=== PATIENT | female | born 1970 | race Caucasian/White ===

== ENCOUNTER 2020-04-11 08:51 | Outpatient (CLI) | payer OTHER, SELFPAY ==
--- NOTE | ~2020-04-11 | XR_ITS ---
EXAMINATION: XR chest 2V EXAM DATE: 04/11/2020 09:16 INDICATION: Cough. TECHNIQUE: Frontal and lateral projections of the chest obtained and reviewed. Comparison is made to prior examination from 08/06/2006. FINDINGS: The lungs are clear. There are no pleural effusions. The cardiomediastinal silhouette is within normal limits. There is no pneumothorax suspected. Mild to moderate lower thoracic dextrosco liosis. There are cholecystectomy clips. IMPRESSION: No acute cardiopulmonary findings. Reviewed, dictated and finalized at location B.
== END 2020-04-11 08:52 | disposition home or self-care (01) ==
LOC: ANHIMG 09:04
PROVIDERS: PCP Family Medicine; Visit Provider Nurse Practitioner Family
DX: R05 Cough (principal)
CPT/HCPCS: 71046

== ENCOUNTER → 2020-11-08 07:50 | Outpatient (CLI) | payer OTHER, SELFPAY ==
--- NOTE | ~2020-11-08 | MM_ITS ---
EXAMINATION: MM diagnostic [facility] BI w trey HISTORY: Right breast soreness. Previous benign left breast biopsy. TECHNIQUE: Additional 3-D tomosynthesis images of the breasts were performed and synthetic 2-D images were generated. CAD analysis was submitted and interpreted. COMPARISON: Comparison to multiple prior studies sequentially, with oldest reviewed study dated 08/2015. BREAST PARENCHYMAL COMPOSITION: Breast composed of scattered areas of fibroglandular density. FINDINGS: There are no suspicious masses, calcifications or architectural distortion in either breast to suggest malignancy. There is a tissue marker associated with a small benign-appearing nodule in t he left breast which is smaller than on prior examinations. IMPRESSION: 1. No evidence for malignancy in either breast. 2. Routine yearly screening mammogram and regular clinical breast examination are recommended. BI-RADS Category 2: Benign finding(s). Reviewed, dictated and finalized at location A. IMPRESSION: 1. No evidence for malignancy in either breast. 2. Routine yearly screening mammogram and regular clinical breast examination a re recommended. BI-RADS Category 2: Benign finding(s).
== END ==
PROVIDERS: PCP Family Medicine; Visit Provider Family Medicine
DX: R92.8 Other abnormal and inconclusive findings on diagnostic imaging of breast (principal)
CPT/HCPCS: 77062; 77066; G0279

== ENCOUNTER → 2021-07-04 01:08 | Outpatient (CLI) | payer OTHER, SELFPAY ==
[2021-07-04 20:43] LABS: SARS-CoV-2 RNA PCR Negative
== END ==
PROVIDERS: PCP Family Medicine; Visit Provider Nurse Practitioner Family
DX: Z20.822 Contact with and (suspected) exposure to COVID-19 (principal)
CPT/HCPCS: C9803; U0003; U0005

== ENCOUNTER → 2021-08-29 15:13 | Outpatient (CLI) | payer OTHER, SELFPAY ==
--- NOTE | ~2021-08-29 | XR_ITS ---
EXAMINATION: XR chest 2V 08/29/2021 15:40 INDICATION: Cough PROCEDURE: 2 view chest COMPARISON: 04/11/2020 FINDINGS: The lungs are clear. The cardiomediastinal silhouette is within normal limits. There are no pleural effusions. There is no pneumothorax suspected. IMPRESSION: 1: NO ACUTE CARDIOPULMONARY DISEASE. Reviewed, dictated and finalized at location B. H WASHER
== END ==
PROVIDERS: PCP Family Medicine; Visit Provider Family Medicine
DX: R05.9 Cough, unspecified (principal)
CPT/HCPCS: 71046

== ENCOUNTER 2022-10-05 07:18 | Outpatient (CLI) | payer OTHER, SELFPAY ==
--- NOTE | ~2022-10-05 | CT_ITS ---
EXAMINATION: CT sinus wo con DATE: 10/05/2022 07:40 INDICATION: Facial pain, chronic sinusitis TECHNIQUE: Computed tomography (CT) of the paranasal sinuses was performed without intravenous contra st. The dose-length product (DLP) was 286.97 mGy-cm. Iterative reconstruction was used. COMPARISON: None FINDINGS: There is normal development and pneumatization of the paranasal sinuses. There is a 5 mm po lyp or mucous retention cyst in the left sphenoid sinus. The frontal, sphenoid, ethmoid, and maxillar y sinuses are otherwise clear. The bilateral ostiomeatal complexes are patent. Visualized soft tissue s are unremarkable. IMPRESSION: 1. Tiny polyp or mucous retention cyst in the left sphenoid sinus. Reviewed, dictated and finalized at location B.
== END 2022-10-05 07:19 | disposition home or self-care (01) ==
PROVIDERS: PCP Family Medicine; Visit Provider Family Medicine
DX: J32.9 Chronic sinusitis, unspecified (principal)
CPT/HCPCS: 70486

== ENCOUNTER 2022-12-04 13:39 | Outpatient (CLI) | payer OTHER, SELFPAY ==
[2022-12-09 05:51] LABS: FSH 98.3 mIU/mL (***); LH 40.1 mIU/mL (***); Progesterone <0.2 ng/mL (***)
[2022-12-10 16:11] LABS: Testosterone Free 1.1 pg/mL (0.1-6.4); Testosterone Total 9 ng/dL (2-45)
[2022-12-13 23:50] LABS: Estradiol, Ultrasensitive 4 pg/mL
== END 2022-12-04 13:40 | disposition home or self-care (01) ==
PROVIDERS: PCP Family Medicine; Visit Provider Registered Nurse
DX: N95.1 Menopausal and female climacteric states (principal); R53.82 Chronic fatigue, unspecified
CPT/HCPCS: 36415; 82670; 83001; 83002; 84144; 84402; 84403; 84443

== ENCOUNTER 2023-01-22 11:36 | Outpatient (CLI) | payer OTHER, SELFPAY ==
--- NOTE | ~2023-01-22 | MM_ITS ---
EXAMINATION: MM screening [facility] BI w trey HISTORY: Screening TECHNIQUE: Craniocaudal and mediolateral oblique 3-D tomosynthesis images were obtained and synthetic 2-D images were generated. CAD analysis was submitted and interpreted. COMPARISON: Comparison to multiple prior studies sequentially, with oldest reviewed study dated 08/2015. BREAST PARENCHYMAL COMPOSITION: There are scattered areas of fibroglandular density. FINDINGS: There is no evidence of suspicious mass, calcification, or architectural distortion to sugg est malignancy in either breast. There has been no suspicious interval change. IMPRESSION: 1. No mammographic evidence of malignancy. 2. Recommend routine screening mammography in one year. BI-RADS Category 1: Negative Reviewed, dictated and finalized at location A.
== END 2023-01-22 11:37 | disposition home or self-care (01) ==
PROVIDERS: PCP Family Medicine; Visit Provider Family Medicine
DX: Z12.31 Encounter for screening mammogram for malignant neoplasm of breast (principal)
CPT/HCPCS: 77063; 77067

== ENCOUNTER 2023-02-17 16:30 | Outpatient (RCR) | payer OTHER, SELFPAY ==
--- NOTE | 2022-12-18 13:33 | PTOPEVAL1 ---
Assessment and note entered by Corrina Brantley, PT Evaluation Information Assessment Status Evaluation Diagnosis low back pain Onset October 31, 2022 Subjective Information chronic problems with back, since surgery on back, with R leg nerve compression and weakness since; was more active with daughter's wedding, then with dancing had a loud pop; problems walking; is better than it was, but still not good; have had therapy in the past and exercises helped get her leg stronger; she likes to walk for exercise ~ 20 minutes; have some neuropathy in her R leg and sometimes R ankle rolls; does not do any back exercises now, but has in the past; Reported Pain Level Pain Score Self Report Additional Pain Score Comments pain the past week-- staying about 1/10, soreness in back & R hip; leg feels weak and going to give out; R leg feels like not moving right when go to take a step when walking; have used ice some pain is less now than initially was; increase pain: overdo activity decrease pain; move some, taking anti inflammatory prescription 2x/day and over the counter meds; pain does not bother her sleeping; sleeps on her side and pillow between her knees; Assessment PT Clinical Summary Denise has the diagnosis of low back and R hip pain. She reports onset with increasing activity level. Her history includes lumbar discectomy with residual R neuropathy. She is active and works part time at [employer], sitting tasks. With the evaluation, she has weakness over trunk and both legs, R weaker than L; L hamstring is tighter than R; she has scoliosis of her spine with poor standing positioning, with R hip elevated and forward rotation; she currently does not do any back exercises. Skilled PT services are indicated for modalities PRN for pain control; therapeutic exercises to increase trunk and hip strength and flexibility; education for home exercises and posture correction. Plan of Care Interventions Electrical Stimulation,Hot Pack/Cold Pack,Manual Therapy,Mechanical Traction,Neuro Re-education, Patient Education,Therapeutic Activities, Therapeutic Exercise,Ultrasound,Other Other Interventions taping,
--- NOTE | 2023-01-22 15:41 | OPREHPOC ---
Outpatient Therapy Plan of Care This is a Multidisciplinary Plan of Care that may contain components documented by all disciplines (PT, OT, and ST.) PT Problem 1 PT Problem #1 Knowledge Deficit PT Goal 1 Goal 1* indep with home exercise program Progress Met Comment 01-22-23 progress continue towards goal PT Problem 2 PT Problem #2 Pain PT Goal 1 Goal 1* pt report NO soreness in her back or R hip Progress Not Met Comment 01-22-23 progress NEW GOALS: 1* pain rating in back of 2/10 at worst 2* no pain in R hip reported PT Problem 3 PT Problem #3 Impaired Flexibility PT Goal 1 Goal 1* supine hamstring length with SLR L 65' 2* supine piriformis stretch on R, reports same stretch as L side Progress Partially Met Comment 01-22-23 progress met goal 1 NEW GOALS: 1* supine piriformis stretch on R report same stretch as L 2* supine hamstrring SLR stretch on R without increase pain PT Problem 4 PT Problem #4 Impaired Strength PT Goal 1 Goal single leg standing with good stability x 20 seconds 1* R 2* L side lying hip abduction to 10' x 20 reps 3* R 4* L prone hip extension x 20 reps 5* R 6* L Progress Partially Met Comment 01-22-23 progress met goals 3,4; partially met #1 & 2 with time, but is not stable continue towards goals
--- NOTE | 2023-01-22 15:42 | PTOPPROG ---
Assessment and note entered by Corrina Brantley, PT Evaluation Information Assessment Status Progress Diagnosis low back pain Onset October 31, 2022 Subjective Information Denise reports: pain has increased with doing yard work and progression of the exercises at the last PT session; having more pain and spasms in back; doing exercises at home; is going to have her friend do accupuncture on her back again; R leg/hip is better, but back is hurting more; Assessment PT Clinical Summary Denise has received 6 PT sessions. Compared to the initial evaluation: pain rating is worse at 2-5/10, was 1/10 all the time; she has recently done more activity with yard work and progression of her therapy activities; she reports less pain in her R hip--only hurts when there is pressure over lateral hip; flexibility of L hamstring has increased with SLR stretch; increase strength with single leg standing R and L and mat exercises; she has been educated on HEP and body mechanics and pain control/management. The goals were partially met. Continue PT treatment to further decrease pain, increase strength and activity level and progression of HEP. Plan of Care Interventions Electrical Stimulation,Hot Pack/Cold Pack,Manual Therapy,Mechanical Traction,Neuro Re-education, Patient Education,Therapeutic Activities, Therapeutic Exercise,Ultrasound,Other Other Interventions taping, IASTM, dry needling PT Services Indicated Yes Treatment Frequency and 2x/wk for 5 weeks Duration These treatments will address the objective and functional deficits as defined above. The patient will be advanced safely and appropriately in order for the patient to progress towards his/her prior level of function. Additional exercises will be introduced and as well as a comprehensive home exercise program upon discharge, if needed, ?to ensure carryover of functional gains achieved in the clinic. This treatment plan has been reviewed and agreement upon by the patient.
--- NOTE | 2023-01-22 15:43 | PCPTNOTE ---
pt will be out of town next week on vacation, January 26 to ;
--- NOTE | 2023-02-17 17:33 | PTOPDC ---
Assessment and note entered by Davie Dutta Evaluation Information Assessment Status Discharge Diagnosis low back pain Onset 10/31/22 Subjective Information Pt. reports that her pain continues to be intense. She reports that after exercise she is noticing increased muscle tension. She reports that she has been taking a muscle relaxor on a nightly basis. She states that she is frustrated that nothing relieves her pain. She reports she is able to sleep at night with use of her muscle relaxor. She notes that she is having to stretch frequently at work due to recently developed spasming. She continues to notice pain in the right leg described in the buttock. Reported Pain Level Pain Score 8: Self Report Assessment PT Clinical Summary Pt. has been advanced through level 1 exercise of the modified lagos prabha trunk stabilizaiton protocol. She continues to provide consistent pain reports that do not fluctuate during treatment. Upon examination this date pt. presents with finding on special testing that would indicate both hip and lumbar pathology. At this time given the pt. consistent pain reports recommend follow up with her doctor and consider possible further imaging of the right hip and lumbar spine. She is encouraged to continue with her HEP. Plan of Care PT Services Indicated Yes
== END 2023-02-18 13:13 | disposition home or self-care (01) ==
LOC: ANHPT 16:30
PROVIDERS: PCP Family Medicine; Visit Provider Family Medicine
DX: M54.50 Low back pain, unspecified (principal); M25.551 Pain in right hip; M51.36 Other intervertebral disc degeneration, lumbar region
CPT/HCPCS: 97014; 97110; 97112; 97161; 97530; G0283

== ENCOUNTER 2023-02-19 00:23 | Day surgery (SDC) | payer OTHER, SELFPAY ==
[2023-02-05 11:34] VITALS: BMI 36.6
[2023-02-19 06:10] VITALS: BP 148/97; PULSE 89; RESP 18; TEMP 35.8; O2SAT 98; BMI 38.0
[2023-02-19] MEDS: LACTATED RINGERS 1,000 ML 150 ML IV CONT (06:41)
--- NOTE | 2023-02-19 07:19 | P.HP_ITS ---
History of Present Illness History of Present Illness Consent: Risks, benefits, and alternatives have been discussed and questions answered. Patient agrees to proceed with procedure. Chief complaint: neoplasm screening Narrative: Julia Brand is a 52 year old female Presents for screening colonoscopy. Patient's current weight appetite and bowel movements are normal. She denies abdominal pain. She has had no bleeding. Family history noncontributory. Patient presents today for screening exam. Review of Systems Review of Systems: Review of systems noncontributory. [facility] Past Medical History Medical History (Updated 02/19/23 @ 07:21 by Tao Mccarthy MD) Abnormal mammogram Allergies BMI 36.0-36.9,adult BMI 37.0-37.9, adult BMI 38.0-38.9,adult BMI greater than 30 Chronic low back pain Constipation Cough COVID-19 Degenerative lumbar disc Low back pain Low vitamin D level Muscle spasms of neck Obesity (BMI 30-39.9) Palpable mass of soft tissue of knee Recurrent sinusitis Right hip pain Right leg pain Surgical History Surgical History (Updated 11/27/22 @ 15:09 by Francesca Hernandez CMA) History of cholecystectomy History of endometrial ablation Previous back surgery Family History Family History (Updated 11/26/22 @ 09:39 by Francesca Hernandez CMA) Father Hypertension Family history of sleep apnea COPD (chronic obstructive pulmonary disease) Colon polyp Obesity Sibling Hypertension Family history of coronary artery disease COPD (chronic obstructive pulmonary disease) Collapsed lung Aneurysm Mother Family history of arthritis Obesity Hypotension Pulmonary embolism History of blood clotting factor deficiency Factor 5 Leiden mutation, heterozygous Social History Social History (Updated 11/27/22 @ 15:10 by Francesca Hernandez CMA) Smoking status: Never smoker Second hand tobacco smoke exposure: No Alcohol intake: current Alcohol use details: couple times a month Substance use: never Substance use type: does not use Lack of Transportation: No Current Housing: I Have Housing Concerned About Future Housing: No Difficulty Paying Gas/Electric Bills: No Difficulty Paying for Meds: No Currently Unemployed: No Education: High School Diploma/GED Difficulty w/ Childcare or Family Care: No Living arrangements: with family Occupation/Education: occupation Gender identity (if verbalized by the patient): Female Spiritual care concerns: No Meds Home Medications and Allergies Home Medications Medication Instructions Recorded Confirmed Type linaclotide 145 mcg capsule 145 mcg PO DAILY #30 caps 11/15/20 02/19/23 Rx (Linzess) phentermine 37.5 mg capsule 37.5 mg PO DAILY #30 caps 10/12/22 02/19/23 Rx olopatadine 0.1 % eye drops See Rx Instructions .Route 10/22/22 02/19/23 Rx .COMPLEX #5 mL cetirizine 10 mg capsule (Zyrtec) 10 mg PO DAILY PRN Allergy Symptoms 11/27/22 02/19/23 History Dream Cream See Rx Instructions .Route 12/24/22 02/19/23 Rx .COMPLEX #30 grams cyclobenzaprine 10 mg tablet 10 mg PO QHS #30 tabs 02/15/23 02/19/23 Rx nabumetone 750 mg tablet 750 mg PO BID #60 tabs 02/17/23 02/19/23 Rx Allergies Allergy/AdvReac Type Severity Reaction Status Date / Time
--- NOTE | 2023-02-19 07:21 | WPDANESEPPF ---
Anes - Initial Pre Proc Eval Procedure: Operation Date: 02/19/23 07:30 Proposed Procedures p Screening Colonoscopy - Tao Mccarthy MD Date/Time: 02/19/23 07:21 Surgeon: Tao Mccarthy MD Pre Op Diagnosis: neoplasm screening Patient Data Age: 52 Gender: F Height: 1.57 m Weight: 94.5 kg Last Vital Signs Temp 96.4 F L 02/19/23 06:10 Pulse 89 02/19/23 06:10 Resp 18 02/19/23 06:10 BP 148/97 H 02/19/23 06:10 Pulse Ox 98 02/19/23 06:10 O2 Del Method Room Air 02/19/23 06:10 Allergies Allergy/AdvReac Type Severity Reaction Status Date / Time atorvastatin Allergy Mild sore throat Verified 02/19/23 06:25 ezetimibe Allergy Mild arthralgia Verified 02/19/23 06:25 Home Medications Medication Instructions Recorded Confirmed Type linaclotide 145 mcg capsule 145 mcg PO DAILY #30 caps 11/15/20 02/19/23 Rx (Linzess) phentermine 37.5 mg capsule 37.5 mg PO DAILY #30 caps 10/12/22 02/19/23 Rx olopatadine 0.1 % eye drops See Rx Instructions .Route 10/22/22 02/19/23 Rx .COMPLEX #5 mL cetirizine 10 mg capsule (Zyrtec) 10 mg PO DAILY PRN Allergy Symptoms 11/27/22 02/19/23 History Dream Cream See Rx Instructions .Route 12/24/22 02/19/23 Rx .COMPLEX #30 grams cyclobenzaprine 10 mg tablet 10 mg PO QHS #30 tabs 02/15/23 02/19/23 Rx nabumetone 750 mg tablet 750 mg PO BID #60 tabs 02/17/23 02/19/23 Rx Patient hx anesthesia problems: none Family hx anesthesia problems: none Results Review: All pre-operative results and documents have been reviewed as part of the pre-operative evaluation. [facility] Past Medical History Medical History (Updated 02/19/23 @ 07:21 by Tao Mccarthy MD) Abnormal mammogram Allergies BMI 36.0-36.9,adult BMI 37.0-37.9, adult BMI 38.0-38.9,adult BMI greater than 30 Chronic low back pain Constipation Cough COVID-19 Degenerative lumbar disc Low back pain Low vitamin D level Muscle spasms of neck Obesity (BMI 30-39.9) Palpable mass of soft tissue of knee Recurrent sinusitis Right hip pain Right leg pain Surgical History Surgical History (Updated 11/27/22 @ 15:09 by Francesca Hernandez CMA) History of cholecystectomy History of endometrial ablation Previous back surgery Family History Family History (Updated 11/26/22 @ 09:39 by Francesca Hernandez CMA) Father Hypertension Family history of sleep apnea COPD (chronic obstructive pulmonary disease) Colon polyp Obesity Sibling Hypertension Family history of coronary artery disease COPD (chronic obstructive pulmonary disease) Collapsed lung Aneurysm Mother Family history of arthritis Obesity Hypotension Pulmonary embolism History of blood clotting factor deficiency Factor 5 Leiden mutation, heterozygous Social History Social History (Updated 11/27/22 @ 15:10 by Francesca Hernandez CMA) Smoking status: Never smoker Second hand tobacco smoke exposure: No Alcohol intake: current Alcohol use details: couple times a month Substance use: never Substance use type: does not use Lack of Transportation: No Current Housing: I Have Housing Concerned About Future Housing: No Difficulty Paying Gas/Electric Bills: No Difficulty Paying for Meds: No Currently Unemployed: No Education: High School Diploma/GED Difficulty w/ Childcare or Family Care: No Living arrangements: with family Occupation/Education: occupation Gender identity (if verbalized by the patient): Female Spiritual care concerns: No Anes - Eval Final PreProcedure Day of Procedure 02/19/23 07:21 Patient weight: obese Heart: regular rate and rhythm Lungs: clear to auscultation Airway: Mallampati scale class II Neurological: alert and oriented Last oral intake: >/= 8 hours ASA classification: II Emergent: no Anesthetic plan: proceed Anesthesia type and monitoring: general GIVS and standard monitoring Results Review: All pre-operative results and documents have been reviewed
[2023-02-19 07:49] VITALS: BP 137/83; PULSE 76; RESP 19; O2SAT 100
[2023-02-19 07:59] VITALS: BP 158/97; PULSE 79; RESP 23; O2SAT 100
[2023-02-19 08:09] VITALS: BP 153/92; PULSE 85; RESP 21; O2SAT 100
== END 2023-02-19 08:15 | disposition home or self-care (01) ==
PROVIDERS: PCP Family Medicine; Visit Provider Internal Medicine Gastroenterology
PROC: 0DJD8ZZ Inspection of Lower Intestinal Tract, Via Natural or Artificial Opening Endoscopic (ICD-10-PCS; CPT 45378; principal; 2023-02-19 07:30)
DX: Z12.11 Encounter for screening for malignant neoplasm of colon (principal); K64.8 Other hemorrhoids; K59.00 Constipation, unspecified; G89.29 Other chronic pain; M54.50 Low back pain, unspecified; E66.9 Obesity, unspecified; Z68.38 Body mass index [BMI] 38.0-38.9, adult
CPT/HCPCS: 45378; J2704; J7120

== ENCOUNTER 2023-03-02 06:47 | Outpatient (CLI) | payer OTHER, SELFPAY ==
--- NOTE | ~2023-03-02 | XR_ITS ---
AP view of the pelvis and AP and lateral views of the right hip Clinical history: Pain Findings: No acute fracture or dislocation is seen. Osseous alignment is anatomic. Bilateral hip and SI joint spaces are preserved. Soft tissues are unremarkable. Impression: No significant abnormality is seen. Reviewed, dictated and finalized at [facility]. Impression: No significant abnormality is seen.
== END 2023-03-02 06:48 | disposition home or self-care (01) ==
PROVIDERS: PCP Family Medicine; Visit Provider Physician Assistant Medical
DX: M25.551 Pain in right hip (principal); G89.29 Other chronic pain
CPT/HCPCS: 73502

== ENCOUNTER 2023-03-24 06:40 | Outpatient (CLI) | payer OTHER, SELFPAY ==
[2023-03-24 07:25] LABS: Basophils Percent Auto 0.5 % (0.2-1.2); Eosinophils Absolute Auto 0.2 K/mm3 (0-0.3); Eosinophils Percent Auto 4.2 % (0-4.4); Hematocrit 39.4 % (37.0-47.0); Hemoglobin 12.8 g/dL (12.0-15.0); Immature Granulocyte Absolute 0.02 K/mm3 (0.00-0.031); Immature Granulocyte Percent A 0.4 % (0-0.5); Lymphocytes Absolute Auto 2.07 K/mm3 (0.9-3.2); Lymphocytes Percent Auto 36.6 % (18.3-44.2); Mean Corpuscular HGB Conc 32.5 g/dl (32-36); Mean Corpuscular Hemoglobin 29.1 pg (26-34); Mean Corpuscular Volume 89.5 fl (80-100); Mean Platelet Volume 9.5 fl (7.4-10.4); Monocytes Absolute Auto 0.5 K/mm3 (0.1-0.6); Neutrophils Absolute Auto 2.8 K/mm3 (1.3-6.7); Neutrophils Percent Auto 50.3 % (45.5-73.1); Platelet Count Result 282 k/mm3 (150-375); Red Cell Distribution Width 13.9 % (11.5-14.5); White Blood Count 5.7 K/mm3 (4.5-10.0)
[2023-03-24 07:54] LABS: Alanine Aminotransferase 26 U/L (6-35); Albumin Level 4.3 g/dL (3.5-5.1); Alkaline Phosphatase 63 U/L (38-126); Anion Gap 7 mmol/L (8-16); Aspartate Amino Transferase 27 U/L (14-36); Bilirubin,Total 0.6 mg/dL (0.2-1.3); Blood Urea Nitrogen 27 mg/dL (7-17); Calcium 9.2 mg/dL (8.4-10.2); Carbon Dioxide 27 mmol/L (22-30); Chloride 102 mmol/L (98-107); Estimated Glomerular Filt Rate > 60; Glucose 99 mg/dL (65-110); HDL Direct 78 mg/dL; Potassium 3.9 mmol/L (3.4-5.0); Sodium 136 mmol/L (137-145); Triglycerides 101 mg/dL (<150)
[2023-03-24 07:57] LABS: LDL Cholesterol Direct 188 mg/dL
[2023-03-24 16:33] LABS: Vitamin D 25 Hydroxy 61.8 ng/mL
[2023-03-25 03:54] LABS: Cholesterol 344 mg/dL (0-200)
== END 2023-03-24 06:41 | disposition home or self-care (01) ==
PROVIDERS: PCP Family Medicine; Visit Provider Physician Assistant Medical
DX: E78.5 Hyperlipidemia, unspecified (principal); R79.89 Other specified abnormal findings of blood chemistry; R53.82 Chronic fatigue, unspecified; N95.1 Menopausal and female climacteric states; R68.82 Decreased libido; E55.9 Vitamin D deficiency, unspecified
CPT/HCPCS: 36415; 80053; 80061; 82306; 85025

== ENCOUNTER 2023-03-26 12:22 | Outpatient (CLI) | payer OTHER, SELFPAY ==
--- NOTE | ~2023-03-26 | MR_ITS ---
EXAMINATION: MR lumbar spine wo con DATE: 03/26/2023 13:34 INDICATION: Other intervertebral disc degeneration, lumbar spine. Chronic low back pain. Lumbar radic ulopathy. TECHNIQUE: Magnetic resonance imaging (MRI) of the lumbar spine was performed without intravenous con trast. COMPARISON: Lumbar spine MRI 02/09/2018 FINDINGS: There is 22 degrees levoscoliosis of thoracolumbar spine. There is 3 mm retrolisthesis of L 1 on L2, L2 on L3, L3 on L4, L4 on L5, and L5 on S1. There is mild chronic anterior wedging of T11 ve rtebral body. There is mildly decreased disc height at T11-T12, moderately decreased disc height at T 12-L1 and L1-L2, mildly decreased disc height at L2-L3, L3-L4, and L4-L5, and severely decreased disc height at L5-S1 with endplate remodeling. The distal spinal cord signal intensity is normal. The con us medullaris is at T12. The following disc levels are specifically discussed: L1-L2: The disc is bulging and has an annular fissure. There is moderate bilateral facet joint osteoa rthritis. There is mild left neural foraminal stenosis. There is mild central canal stenosis. L2-L3: The disc is bulging. There is moderate bilateral facet joint osteoarthritis. There is mild alysia ateral neural foraminal stenosis. There is mild central canal stenosis. L3-L4: The disc is bulging and has an annular fissure. There is moderate right and mild left facet robbie int osteoarthritis. There is mild right and moderate left neural foraminal stenosis. There is mild ce ntral canal stenosis. There is moderate stenosis of left lateral recess. L4-L5: The disc is bulging and has an annular fissure. There is moderate bilateral facet joint osteoa rthritis. There is mild right and moderate left neural foraminal stenosis. There is mild central markus l stenosis. L5-S1: The disc is bulging. There is severe bilateral facet joint osteoarthritis. There is moderate b ilateral neural foraminal stenosis. There is mild central canal stenosis. IMPRESSION: 1. Severe lumbar spondylosis, stable from 02/09/2018. 2. Thoracolumbar levoscoliosis. Reviewed, dictated and finalized at location A.
--- NOTE | ~2023-03-26 | MR_ITS ---
EXAMINATION: MR hip RT wo con DATE: 03/26/2023 13:34 INDICATION: Right hip pain. TECHNIQUE: Magnetic resonance imaging (MRI) of the right hip was performed without intravenous contra st. COMPARISON: Right hip radiographs 03/02/2023 FINDINGS: Bones/cartilage: There is lumbar levoscoliosis and severe lower lumbar spondylosis. The femoral head/neck junctions ar e normal. The hip joints demonstrate tiny osteophytes. Small [id number] images of right hip demons trate normal cartilage. Labrum: Right acetabular labrum is normal. Fluid: There is no hip joint effusion. There is moderate bilateral trochanteric bursitis. Soft tissues: The iliopsoas tendons and hamstring tendon origins are normal. There is a partial tear of right glute us minimus tendon. There is mild right gluteus medius tendinopathy. There is severe left gluteus mini mus tendinopathy. Left gluteus medius tendon is normal. IMPRESSION: 1. Partial tear of right gluteus minimus tendon. 2. Severe tendinopathy of left gluteus minimus tendon. 3. Moderate bilateral trochanteric bursitis. Reviewed, dictated and finalized at location A.
== END 2023-03-26 12:23 | disposition home or self-care (01) ==
LOC: ANHIMG 12:26
PROVIDERS: PCP Family Medicine; Visit Provider Physician Assistant Medical
DX: M51.36 Other intervertebral disc degeneration, lumbar region (principal); M54.41 Lumbago with sciatica, right side; M70.61 Trochanteric bursitis, right hip; M70.62 Trochanteric bursitis, left hip; M47.896 Other spondylosis, lumbar region
CPT/HCPCS: 72148; 73721

== ENCOUNTER 2023-12-14 11:09 | Outpatient (CLI) | payer OTHER, SELFPAY ==
--- NOTE | ~2023-12-14 | MMUS_ITS ---
EXAMINATION: MM diagnostic [facility] BI w trey, US breast RT limited HISTORY: Right breast pain TECHNIQUE: Additional 3-D tomosynthesis images of the breasts were performed and synthetic 2-D images were generated. CAD analysis was submitted and interpreted. High resolution Limited right breast ult rasound was performed. COMPARISON: Comparison to multiple prior studies sequentially, with oldest reviewed study dated 01/2021. BREAST PARENCHYMAL COMPOSITION: Not dense: There are scattered areas of fibroglandular density. FINDINGS: MAMMOGRAPHIC FINDINGS: There are no suspicious masses, calcifications or architectural distortion in either breast to sugges t malignancy. ULTRASOUND: Limited right breast ultrasound: Normal heterogeneous echotexture without focal solid or cystic mass. IMPRESSION: 1. No evidence for malignancy in either breast. 2. Routine yearly screening mammogram and regular clinical breast examination are recommended. BI-RADS Category 1: Negative Reviewed, dictated and finalized at location B. IMPRESSION: 1. No evidence for malignancy in either breast. 2. Routine yearly screening mammogram and regular clinical breast examination a re recommended. BI-RADS Category 1: Negative
== END 2023-12-14 11:10 | disposition home or self-care (01) ==
PROVIDERS: PCP Family Medicine; Visit Provider Nurse Practitioner Family
DX: N64.4 Mastodynia (principal); R92.8 Other abnormal and inconclusive findings on diagnostic imaging of breast
CPT/HCPCS: 76642; 77062; 77066; G0279

== ENCOUNTER 2024-02-16 07:04 | Outpatient (CLI) | payer OTHER, SELFPAY ==
[2024-02-16 07:34] LABS: Basophils Percent Auto 0.4 % (0.2-1.2); Eosinophils Absolute Auto 0.2 K/mm3 (0-0.3); Eosinophils Percent Auto 3.5 % (0-4.4); Hematocrit 41.2 % (37.0-47.0); Hemoglobin 13.4 g/dL (12.0-15.0); Immature Granulocyte Absolute 0.01 K/mm3 (0.00-0.031); Immature Granulocyte Percent A 0.2 % (0-0.5); Lymphocytes Absolute Auto 1.56 K/mm3 (0.9-3.2); Mean Corpuscular HGB Conc 32.5 g/dl (32-36); Mean Corpuscular Hemoglobin 29.1 pg (26-34); Mean Corpuscular Volume 89.4 fl (80-100); Monocytes Absolute Auto 0.4 K/mm3 (0.1-0.6); Monocytes Percent Auto 7.9 % (2.6-8.5); Platelet Count Result 263 k/mm3 (150-375); Red Blood Count 4.61 M/mm3 (4.2-5.4); Red Cell Distribution Width 14.1 % (11.5-14.5); White Blood Count 5.2 K/mm3 (4.5-10.0)
[2024-02-16 07:46] LABS: Alanine Aminotransferase 68 U/L (6-35); Albumin Level 4.3 g/dL (3.5-5.1); Alkaline Phosphatase 72 U/L (38-126); Anion Gap 6 mmol/L (4-12); Aspartate Amino Transferase 54 U/L (14-36); Bilirubin,Total 0.6 mg/dL (0.2-1.3); Blood Urea Nitrogen 15 mg/dL (7-17); Calcium 9.3 mg/dL (8.4-10.2); Carbon Dioxide 33 mmol/L (22-30); Chloride 100 mmol/L (98-107); Cholesterol 299 mg/dL (0-200); Estimated Glomerular Filt Rate > 60; Glucose 95 mg/dL (65-110); HDL Direct 69 mg/dL; Sodium 139 mmol/L (137-145); Triglycerides 108 mg/dL (<150)
[2024-02-16 07:57] LABS: LDL Cholesterol Direct 170 mg/dL
[2024-02-16 10:30] LABS: Vitamin D 25 Hydroxy 30.5 ng/mL
== END 2024-02-16 07:05 | disposition home or self-care (01) ==
LOC: ANHLAB 07:05
PROVIDERS: PCP Family Medicine; Visit Provider Family Medicine
DX: E78.5 Hyperlipidemia, unspecified (principal); E55.9 Vitamin D deficiency, unspecified; R79.89 Other specified abnormal findings of blood chemistry; K21.00 Gastro-esophageal reflux disease with esophagitis, without bleeding; R53.82 Chronic fatigue, unspecified; Z13.220 Encounter for screening for lipoid disorders
CPT/HCPCS: 36415; 80053; 80061; 82248; 82306; 82607; 84443; 85025

== ENCOUNTER 2024-02-18 06:57 | Outpatient (CLI) | payer OTHER, SELFPAY ==
[2024-02-18 07:38] LABS: Alanine Aminotransferase 50 U/L (6-35); Albumin Level 4.3 g/dL (3.5-5.1); Alkaline Phosphatase 69 U/L (38-126); Aspartate Amino Transferase 38 U/L (14-36); Bilirubin,Total 0.6 mg/dL (0.2-1.3)
[2024-02-18 08:47] LABS: Hepatitis B Surface Antigen Negative (Negative)
[2024-02-18 08:53] LABS: HAV RESULT Negative (Negative); Hepatitis B Core IgM Result Negative (Negative)
[2024-02-18 09:02] LABS: Hepatitis C Virus Antibody Negative (Negative)
== END 2024-02-18 06:58 | disposition home or self-care (01) ==
PROVIDERS: PCP Family Medicine; Visit Provider Family Medicine
DX: R74.8 Abnormal levels of other serum enzymes (principal)
CPT/HCPCS: 36415; 80074; 80076

== ENCOUNTER 2024-05-31 11:38 | Outpatient (CLI) | payer OTHER, SELFPAY ==
[2024-05-31 11:56] LABS: Hematocrit 41.3 % (37.0-47.0); Hemoglobin 13.1 g/dL (12.0-15.0); Mean Corpuscular HGB Conc 31.7 g/dl (32-36); Mean Corpuscular Hemoglobin 27.8 pg (26-34); Mean Corpuscular Volume 87.5 fl (80-100); Mean Platelet Volume 9.1 fl (7.4-10.4); Platelet Count Result 293 k/mm3 (150-375); Red Blood Count 4.72 M/mm3 (4.2-5.4); Red Cell Distribution Width 14.7 % (11.5-14.5); White Blood Count 7.3 K/mm3 (4.5-10.0)
[2024-05-31 12:13] LABS: Iron 71 ug/dL (37-170)
[2024-05-31 12:22] LABS: Percent Iron Saturation 18 % (20-50)
== END 2024-05-31 11:39 | disposition home or self-care (01) ==
PROVIDERS: PCP Family Medicine; Visit Provider Nurse Practitioner Family
DX: R23.3 Spontaneous ecchymoses (principal)
CPT/HCPCS: 36415; 82607; 82746; 83540; 83550; 85027

== ENCOUNTER 2024-08-04 11:41 | Outpatient (CLI) | payer OTHER, SELFPAY ==
--- NOTE | ~2024-08-04 | XR_ITS ---
XR knee RT 3V 08/04/2024 12:09 Indication: Right lateral knee pain after twisting injury Procedure: 3 views right knee Comparison: No prior studies for comparison. Findings: There is mild tricompartment osteoarthritis. Small joint effusion. No fracture or traumatic malalignment. No foreign bodies. Impression: 1: Mild tricompartment osteoarthritis. Reviewed, dictated and finalized at location A. MED PHYSICIAN Impression: 1: Mild tricompartment osteoarthritis.
--- OUTSIDE RECORDS SUMMARY | 2024-08-04 11:45 | XMS_ITS | Patient Health Summary ---
Author Organization [facility] [employer] Address [address] [place] [address] Care Team Providers Care Tailings Dam Laborer Name Role Phone Javad Sher MD Primary Care Provider [phone] Note from [facility],non-owned Affiliates and Associated Physician Practices is amultiple site organization consisting of ambulatory clinics and hospital sitesin [place], [place], [place] and [place]. This disclosure is being madepursuant to the Care Everywhere program and may not contain all information available regarding this patient. Last updated 18.[facility] [employer] Allergies No known active allergies Medications * Be aware that medications may not be up to date on this document. Alwaysverify current medications with the patient. * SAXENDA 18 MG/3ML(Started 01/29/2018) 5 refills left * nabumetone (RELAFEN) 750 MG tablet(Started 02/14/2018) TK 1 T PO BID DAILY * tiZANidine (ZANAFLEX) 4 MG tablet(Started 01/27/2018) TK 1 T PO Q 12 H PRN * azelastine (ASTEPRO) 205.5 MCG/SPRAY nasal spray(Started 11/13/2017) INSTILL 1 SPRAY IEN BID 2 refills left * fluticasone propionate (FLONASE ALLERGY RELIEF) 50 MCG/ACT nasal spray [place] 2 sprays into each nostril once daily Active Problems No known active problems Social History Tobacco Use Types Packs/Day Years Used Date Smoking Tobacco: Never Smokeless Tobacco: Never Tobacco Cessation:Counseling Given: No Alcohol Use Standard Drinks/Week Comments No 0 (1 standard drink = 0.6 oz pur e alcohol) Sex and Gender Information Value Date Recorded Sex Assigned at Not on file Gender Identity Not on file Sexual Orientation Not on file Last Filed Vital Signs Vital Sign Reading Time Taken Comments Blood Pressure 135/82 05/13/2018 9:07 AM SHEEPSKIN PICKLER Pulse 91 05/13/2018 9:07 AM SHEEPSKIN PICKLER Temperature 36.5 ??C (97.7 ??F) 05/13/2018 9:07 AM CS T Respiratory Rate 16 05/13/2018 9:07 AM SHEEPSKIN PICKLER Oxygen Saturation 99% 05/13/2018 9:07 AM SHEEPSKIN PICKLER Inhaled Oxygen Concentration - - Weight 89.4 kg (197 lb) 05/13/2018 9:07 AM SHEEPSKIN PICKLER Height 160 cm (5' 3 ) 05/13/2018 9:07 AM SHEEPSKIN PICKLER Body Mass Index 34.9 05/13/2018 9:07 AM SHEEPSKIN PICKLER Procedures * PAIN MANAGEMENT PROCEDURE TIME(Performed 05/13/2018) Performed for Other spondylosis, lumbosacral region * PAIN MANAGEMENT PROCEDURE TIME(Performed 04/22/2018) Performed for Post laminectomy syndrome * PAIN MANAGEMENT PROCEDURE TIME(Performed 04/08/2018) Performed for Lumbosacral spondylosis with radiculopathy * PAIN MANAGEMENT PROCEDURE TIME(Performed 03/11/2018) Performed for Lumbosacral spondylosis with radiculopathy Results * PAIN MANAGEMENT PROCEDURE TIME (05/13/2018 9:56 AM SHEEPSKIN PICKLER) Only the most recent of4 resultswithin the time period is included. Anatomical Region Laterality Modality X-Ray Angiograph y Narrative 05/13/2018 9:56 AM SHEEPSKIN PICKLER Davie Tellez MD ? 05/13/2018 ??9:56 AM The patient was identified in the holding area and the operative permit was explained and signed. I have discussed with the patient the risks, benefits, side effects and complications of fluoroscopically guided lumbar facet steroid injections. I have answered the patient's questions regarding the procedure and have given the patient the opportunity to refuse the procedure. I also have discussed alternative methods of treatment. The patient stated understanding of the procedure and wished to proceed with fluoroscopically guided lumbar facet steroid injections. The patient was taken to the fluoroscopic suite and placed on a C-arm table in the prone position with the appropriate monitors placed. A nurse was in attendance for the duration of the procedure to carefully monitor the patient. Please refer to the nursing record for vital sign documentation and for any doses of sedatives and medications. I was present and gave the order for any medications given to the patient. The procedure was performed on the bilateral L5-S1 facet joints. The lumbosacral region of the back was prepped and draped in the usual sterile fashion. Using fluoroscopic guidance, a 25 gauge 3.5 inch Quincke needle was placed in each facet joint. AP, lateral and oblique views were used to confirm needle placement in each joint. There was negative aspiration of blood and cerebrospinal fluid. 0.3 cc of Omnipaque (240 mg/cc) was injected and filling of each facet joint was confirmed. There were no signs of intravascular, intrathecal or epidural injection. A preservative free mixture of 0.25 cc of 0.25% Bupivacaine and 40 mg of depomedrol was injected into each facet joint. The needles were all removed intact. The procedure was then repeated in an identical fashion on the contralateral side. The patient tolerated the procedure well and there were no complications. The patient was taken to the recovery area. The patient remained in stable condition with no apparent complications. Postprocedure instructions were given to the patient and a follow up appointment was confirmed. The patient was also discharged with information on how to reach the clinic or content manager physician at anytime for questions or complaints Estimated blood loss during procedure 0 ml. ?? Davie SOLANO G ORDERABLES Care Teams Tailings Dam Laborer Relationship Specialty Start Date End Date Javad Sher MD [address] [place] [address] PCP - General Family Medicine 02/21/18
--- OUTSIDE RECORDS SUMMARY | 2024-08-04 11:45 | XMS_ITS | Clinical Summary ---
Author Organization [facility] [employer] Address [address] [place] [address] Care Team Providers Care Geodetic Computator Name Role Phone Javad Sher MD Primary Care Provider [phone] Source Comments [facility] [employer],[facility] and Associated Physician Practices is amultiple site organization consisting of ambulatory clinics and hospital sitesin [place], [place], [place] and [place]. This disclosure is being madepursuant to the Care Everywhere program and may not contain all information available regarding this patient. Last updated 18.[employer] Allergies No known active allergies Medications * Be aware that medications may not be up to date on this document. Alwaysverify current medications with the patient. Medication Sig Dispensed Refills Start Date End Date Status SAXENDA 18 MG/3ML 5 01/29/2018 Active nabumetone (RELAFEN) 750 MG tablet TK 1 T PO BID DAILY 0 02/14/2018 Active tiZANidine (ZANAFLEX) 4 MG tablet TK 1 T PO Q 12 H PRN 0 01/27/2018 Active azelastine (ASTEPRO) 205.5 MCG/SPRAY nasal spray INSTILL 1 SPRAY IEN BID 2 11/13/2017 Active fluticasone propionate (FLONASE ALLERGY RELIEF) 50 MCG/ACT nasal spray [place] 2 sprays into each nostril once daily Active Active Problems No known active problems Family History Medical History Relation Name Comments COPD - Chronic Obstructive Pulmonary Disease Father Diabetes - Gestational Father Diabetes - Type 2 Father Hypertension Father Sleep Disorder - Other Father Hypertension Mother Other - Pulmonary/Lung Mother Phlebitis/Blood Clot Mother Sleep Disorder - Other Mother Relation Name Status Comments Father Alive Mother Alive Social History Tobacco Use Types Packs/Day Years [...] Comments Blood Pressure 135/82 05/13/2018 9:07 AM COMBINER OPERATOR Pulse 91 05/13/2018 9:07 AM COMBINER OPERATOR Temperature 36.5 ??C (97.7 ??F) 05/13/2018 9:07 AM CS T Respiratory Rate 16 05/13/2018 9:07 AM COMBINER OPERATOR Oxygen Saturation 99% 05/13/2018 9:07 AM COMBINER OPERATOR Inhaled Oxygen Concentration - - Weight 89.4 kg (197 lb) 05/13/2018 9:07 AM COMBINER OPERATOR Height 160 cm (5' 3 ) 05/13/2018 9:07 AM COMBINER OPERATOR Body Mass Index 34.9 05/13/2018 9:07 AM COMBINER OPERATOR Plan of Treatment Health Maintenance Due Date Last Done Comments COLOGUARD (AGES 45-75) - COL ON CA SCREENING 1972 COLON MONITORING 1972 COLONOSCOPY - COLON CA SCREENING 1972 CT COLONOGRAPHY - COLON CA SCREENING 1972 Colorectal Cancer Screening 1972 FIT - COLON CA SCREENING 1972 FLEX SIG - COLON CA SCREENING 1972 LIPID TESTING 1972 MAMMOGRAM 1972 PAP SMEAR 1972 HIV SCREENING 09/21/1987 HEPATITIS C SCREENING 09/16/1990 DTAP/TDAP/TD VACCINES (1 - Tdap) 09/21/1991 HEPATITIS B VACCINE (1 of 3 - 19+ 3-dose series) 09/21/1991 SCREENING FOR DIABETES 02/21/2018 PNEUMOCOCCAL VACCINE 50+ (1 of 1 - PCV) 2022 ZOSTER VACCINE (1 of 2) 2022 COVID-19 VACCINE ( - 2023-2 5 season) 2024 INFLUENZA VACCINE (#1) 2024 DEPRESSION SCREENING 07/05/2024 HIB VACCINE Aged Out No longer eligi ble based on patient's age to complete this topic HPV VACCINE Aged Out No longer eligi ble based on patient's age to complete this topic MENINGOCOCCAL (Group B) VACCINE Aged Out No longer eligible based on patient's age to complete this topic MENINGOCOCCAL VACCINE Aged Out No atif ashish eligible based on patient's age to complete this topic PNEUMOCOCCAL VACCINE Aged Out No long er eligible based on patient's age to complete this topic Care Teams Geodetic Computator Relationship Specialty Start Date End Date Javad Sher MD [address] [place] [address] PCP - General Family Medicine 02/21/18
--- OUTSIDE RECORDS SUMMARY | 2024-08-04 11:45 | XMS_ITS | Referral Summary ---
Author Organization [facility] [employer] Address [address] [place] [address] Care Team Providers Care Auto Parker Name Role Phone Javad Sher MD Primary Care Provider [phone] [facility] and Associated Physician Practices is amultiple site organization consisting of ambulatory clinics and hospital sitesin [place], [place], [place] and [place]. This disclosure is being madepursuant to the Care Everywhere program and may not contain all information available regarding this patient. Last updated 18.[facility] [employer] Allergies No known active allergies Medications * [...] (FLONASE ALLERGY RELIEF) 50 MCG/ACT nasal spray [place] 2 sprays into each nostril once daily Active Active Problems No known active problems Social [...] Comments Blood Pressure 135/82 05/13/2018 9:07 AM TACKING MACHINE OPERATOR Pulse 91 05/13/2018 9:07 AM TACKING MACHINE OPERATOR Temperature 36.5 ??C (97.7 ??F) 05/13/2018 9:07 AM CS T Respiratory Rate 16 05/13/2018 9:07 AM TACKING MACHINE OPERATOR Oxygen Saturation 99% 05/13/2018 9:07 AM TACKING MACHINE OPERATOR Inhaled Oxygen Concentration - - Weight 89.4 kg (197 lb) 05/13/2018 9:07 AM TACKING MACHINE OPERATOR Height 160 cm (5' 3 ) 05/13/2018 9:07 AM TACKING MACHINE OPERATOR Body Mass Index 34.9 05/13/2018 9:07 AM TACKING MACHINE OPERATOR Plan of Treatment Not on file Care Teams Auto Parker Relationship Specialty Start Date End Date Javad Sher MD [address] [place] [address] PCP - General Family Medicine 02/21/18
== END 2024-08-04 11:42 | disposition home or self-care (01) ==
LOC: ANHIMG 11:43
PROVIDERS: PCP Family Medicine
DX: M17.11 Unilateral primary osteoarthritis, right knee (principal)
CPT/HCPCS: 73562

== ENCOUNTER 2024-08-18 09:57 | Outpatient (CLI) | payer OTHER, SELFPAY ==
--- NOTE | ~2024-08-18 | XR_ITS ---
EXAMINATION: XR chest 2V 08/18/2024 10:20 INDICATION: Chronic cough PROCEDURE: 2 view chest COMPARISON: Comparison to multiple prior studies sequentially, with oldest reviewed study dated 08/2006. FINDINGS: The lungs are clear. The cardiomediastinal silhouette is within normal limits. There are no pleural effusions. There is no pneumothorax suspected. IMPRESSION: 1: NO ACUTE CARDIOPULMONARY DISEASE. Reviewed, dictated and finalized at location B. D SURFACE FABRICATOR
--- OUTSIDE RECORDS SUMMARY | 2024-08-18 10:10 | XMS_ITS | Patient Health Summary ---
Author Organization [facility] [employer] Address [address] [place] [address] Care Team Providers Care Bessemer Bottom Maker Name Role Phone Javad Sher MD Primary Care Provider [phone] Note from [facility],non-owned Affiliates and Associated Physician Practices is amultiple site organization consisting of ambulatory clinics and hospital sitesin [place], [place], [place] and [place]. This disclosure is being madepursuant to the Care Everywhere program and may not contain all information available regarding this patient. Last updated 18.[facility] [employer] Allergies No known active allergies Medications * [...] (FLONASE ALLERGY RELIEF) 50 MCG/ACT nasal spray [place] 2 sprays into each nostril once daily [...] Comments Blood Pressure 135/82 05/13/2018 9:07 AM LINING STAMPER Pulse 91 05/13/2018 9:07 AM LINING STAMPER Temperature 36.5 C (97.7 F) 05/13/2018 9:07 AM LINING STAMPER Respiratory Rate 16 05/13/2018 9:07 AM LINING STAMPER Oxygen Saturation 99% 05/13/2018 9:07 AM LINING STAMPER Inhaled Oxygen Concentration - - Weight 89.4 kg (197 lb) 05/13/2018 9:07 AM LINING STAMPER Height 160 cm (5' 3 ) 05/13/2018 9:07 AM LINING STAMPER Body Mass Index 34.9 05/13/2018 9:07 AM LINING STAMPER Procedures * PAIN MANAGEMENT PROCEDURE TIME(Performed 05/13/2018) Performed for Other spondylosis, lumbosacral region * PAIN MANAGEMENT PROCEDURE TIME(Performed 04/22/2018) Performed for Post laminectomy syndrome * PAIN MANAGEMENT PROCEDURE TIME(Performed 04/08/2018) Performed for Lumbosacral spondylosis with radiculopathy * PAIN MANAGEMENT PROCEDURE TIME(Performed 03/11/2018) Performed for Lumbosacral spondylosis with radiculopathy Results * PAIN MANAGEMENT PROCEDURE TIME (05/13/2018 9:56 AM LINING STAMPER) Only the most recent of4 resultswithin the time period is included. Anatomical Region Laterality Modality X-Ray Angiograph y Narrative 05/13/2018 9:56 AM LINING STAMPER Davie Tellez MD 05/13/2018 9:56 AM The patient was identified in the [...] on how to reach the clinic or cloud solutions architect physician at anytime for questions or complaints Estimated blood loss during procedure 0 ml. Davie Tellez MD DIAGNOSTIC XIOMARA Mcdermott ORDERABLES Care Teams Bessemer Bottom Maker Relationship Specialty Start Date End Date Javad Sher MD [address] [place] [address] PCP - General Family Medicine 02/21/18
--- OUTSIDE RECORDS SUMMARY | 2024-08-18 10:10 | XMS_ITS | Clinical Summary ---
Author Organization [facility] [employer] Address [address] [place] [address] Care Team Providers Care Builder Operator Name Role Phone Javad Sher MD Primary Care Provider [phone] Source Comments [facility] and Associated Physician Practices is amultiple site organization consisting of ambulatory clinics and hospital sitesin [place], [place], [place] and [place]. This disclosure is being madepursuant to the Care Everywhere program and may not contain all information available regarding this patient. Last updated 18.[employer] Allergies No known active allergies Medications * [...] (FLONASE ALLERGY RELIEF) 50 MCG/ACT nasal spray [place] 2 sprays into each nostril once daily [...] Comments Blood Pressure 135/82 05/13/2018 9:07 AM TEACHER COUNSELOR Pulse 91 05/13/2018 9:07 AM TEACHER COUNSELOR Temperature 36.5 C (97.7 F) 05/13/2018 9:07 AM TEACHER COUNSELOR Respiratory Rate 16 05/13/2018 9:07 AM TEACHER COUNSELOR Oxygen Saturation 99% 05/13/2018 9:07 AM TEACHER COUNSELOR Inhaled Oxygen Concentration - - Weight 89.4 kg (197 lb) 05/13/2018 9:07 AM TEACHER COUNSELOR Height 160 cm (5' 3 ) 05/13/2018 9:07 AM TEACHER COUNSELOR Body Mass Index 34.9 05/13/2018 9:07 AM TEACHER COUNSELOR Plan of Treatment Health Maintenance Due Date [...] age to complete this topic Care Teams Builder Operator Relationship Specialty Start Date End Date Javad Sher MD [address] [place] [address] PCP - General Family Medicine 02/21/18
--- OUTSIDE RECORDS SUMMARY | 2024-08-18 10:10 | XMS_ITS | Referral Summary ---
Author Organization [facility] [employer] Address [address] [place] [address] Care Team Providers Care Auto Care Center Manager Name Role Phone Javad Sher MD Primary Care Provider [phone] Source Comments [facility] [employer],[facility] and Associated Physician Practices is amultiple site organization consisting of ambulatory clinics and hospital sitesin [place], [place], [place] and [place]. This disclosure is being madepursuant to the Care Everywhere program and may not contain all information available regarding this patient. Last updated 18.[facility] [employer] Allergies No known active allergies Medications * [...] ALLERGY RELIEF) 50 MCG/ACT nasal spray [place] 2 sprays into each nostril once daily [...] Comments Blood Pressure 135/82 05/13/2018 9:07 AM PILE TRIMMER Pulse 91 05/13/2018 9:07 AM PILE TRIMMER Temperature 36.5 C (97.7 F) 05/13/2018 9:07 AM PILE TRIMMER Respiratory Rate 16 05/13/2018 9:07 AM PILE TRIMMER Oxygen Saturation 99% 05/13/2018 9:07 AM PILE TRIMMER Inhaled Oxygen Concentration - - Weight 89.4 kg (197 lb) 05/13/2018 9:07 AM PILE TRIMMER Height 160 cm (5' 3 ) 05/13/2018 9:07 AM PILE TRIMMER Body Mass Index 34.9 05/13/2018 9:07 AM PILE TRIMMER Plan of Treatment Not on file Care Teams Auto Care Center Manager Relationship Specialty Start Date End Date Javad Sher MD [address] [place] [address] PCP - General Family Medicine 02/21/18
== END 2024-08-18 09:58 | disposition home or self-care (01) ==
LOC: ANHIMG 09:59
PROVIDERS: PCP Family Medicine; Visit Provider Nurse Practitioner Adult Health
DX: R05.3 Chronic cough (principal)
CPT/HCPCS: 71046

== ENCOUNTER 2024-10-04 07:19 | Outpatient (CLI) | payer OTHER, SELFPAY ==
--- OUTSIDE RECORDS SUMMARY | 2024-10-04 07:22 | XMS_ITS | Clinical Summary ---
Author Organization [facility] [employer] Address [address] [place] [address] Care Team Providers Care Pre Sales Technical Consultant Name Role Phone Javad Sher MD Primary Care Provider [phone] Source Comments [facility] [employer],[facility] and Associated Physician Practices is amultiple site organization consisting of ambulatory clinics and hospital sitesin [place], [place], [place] and [place]. This disclosure is being madepursuant to the Care Everywhere program and may not contain all information available regarding this patient. Last updated 18.[employer] Allergies No known active allergies Medications * [...] (FLONASE ALLERGY RELIEF) 50 MCG/ACT nasal spray [place] 2 sprays into each nostril once daily [...] Comments Blood Pressure 135/82 05/13/2018 9:07 AM ONLINE ADVERTISING ANALYST Pulse 91 05/13/2018 9:07 AM ONLINE ADVERTISING ANALYST Temperature 36.5 C (97.7 F) 05/13/2018 9:07 AM ONLINE ADVERTISING ANALYST Respiratory Rate 16 05/13/2018 9:07 AM ONLINE ADVERTISING ANALYST Oxygen Saturation 99% 05/13/2018 9:07 AM ONLINE ADVERTISING ANALYST Inhaled Oxygen Concentration - - Weight 89.4 kg (197 lb) 05/13/2018 9:07 AM ONLINE ADVERTISING ANALYST Height 160 cm (5' 3 ) 05/13/2018 9:07 AM ONLINE ADVERTISING ANALYST Body Mass Index 34.9 05/13/2018 9:07 AM ONLINE ADVERTISING ANALYST Plan of Treatment Health Maintenance Due Date [...] to complete this topic MENINGOCOCCAL (Group B) VACC INE SHARED DECISION-MAKING Aged Out No longer eligibl e based on patient's age to complete this topic MENINGOCOCCAL GROUPS A/C/Y/W VACCINE Aged Out No longer eligible b ased on patient's age to complete this topic PNEUMOCOCCAL VACCINE Aged Out No long er eligible based on patient's age to complete this topic Care Teams Pre Sales Technical Consultant Relationship Specialty Start Date End Date Javad Sher MD [address] [place] [address] PCP - General Family Medicine 02/21/18
[2024-10-04 08:09] LABS: Alanine Aminotransferase 35 U/L (6-35); Albumin Level 4.3 g/dL (3.5-5.1); Alkaline Phosphatase 92 U/L (38-126); Aspartate Amino Transferase 28 U/L (14-36); Bilirubin,Total 0.3 mg/dL (0.2-1.3)
[2024-10-04 08:41] LABS: Cortisol Random 8.38 ug/dL
[2024-10-04 08:53] LABS: Erythrocyte Sedimentation Rate 17 mm/hr (0-20)
[2024-10-05 04:13] LABS: GGT 12 U/L (3-70)
== END 2024-10-04 07:20 | disposition home or self-care (01) ==
LOC: ANHLAB 07:20
PROVIDERS: PCP Family Medicine; Visit Provider Family Medicine
DX: M54.41 Lumbago with sciatica, right side (principal); G89.29 Other chronic pain; E66.01 Morbid (severe) obesity due to excess calories; R74.8 Abnormal levels of other serum enzymes
CPT/HCPCS: 36415; 80076; 82533; 82977; 85652

== ENCOUNTER 2024-12-06 13:12 | Outpatient (CLI) | payer OTHER, SELFPAY ==
--- OUTSIDE RECORDS SUMMARY | 2024-12-06 13:16 | XMS_ITS | Clinical Summary ---
Author Organization [facility] [employer] Address [address] [place] [place] [address] Care Team Providers Care Digital Media Producer Name Role Phone Javad Sher MD Primary Care Provider [phone] Source Comments [facility] [employer],[facility] and Associated Physician Practices is amultiple site organization consisting of ambulatory clinics and hospital sitesin [place], [place], [place] and [place]. This disclosure is being madepursuant to the Care Everywhere program and may not contain all information available regarding this patient. Last updated 18.[employer] Allergies No known active allergies Medications * Be aware that medications may not be up to date on this document. Alwaysverify current medications with the patient. SAXENDA 18 MG/3ML 5 01/29/2018 Active nabumetone (RELAFEN) 750 MG tablet TK 1 T PO BID DAILY 0 02/14/2018 Active tiZANidine (ZANAFLEX) 4 MG tablet TK 1 T PO Q 12 H PRN 0 01/27/2018 Active azelastine (ASTEPRO) 205.5 MCG/SPRAY nasal spray [place] 1 SPRAY IEN BID 2 11/13/2017 Active fluticasone propionate (FLONASE ALLERGY RELIEF) 50 MCG/ACT nasal spray [place] 2 sprays into each nostril once daily [...] drink = 0.6 oz pur e alcohol) Comments No Sex and Gender Information Value Date Recorded Sex Assigned at Not on file Legal Sex Female 11:41 AM CDT Gender Identity Not on file Sexual Orientation Not on file 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 Not on file Not on file Last Filed Vital Signs Vital Sign Reading Time Taken Comments Blood Pressure 135/82 05/13/2018 9:07 AM WHEAT COMBINE DRIVER Pulse 91 05/13/2018 9:07 AM WHEAT COMBINE DRIVER Temperature 36.5 C (97.7 F) 05/13/2018 9:07 AM WHEAT COMBINE DRIVER Respiratory Rate 16 05/13/2018 9:07 AM WHEAT COMBINE DRIVER Oxygen Saturation 99% 05/13/2018 9:07 AM WHEAT COMBINE DRIVER Inhaled Oxygen Concentration - - Weight 89.4 kg (197 lb) 05/13/2018 9:07 AM WHEAT COMBINE DRIVER Height 160 cm (5' 3) 05/13/2018 9:07 AM WHEAT COMBINE DRIVER Body Mass Index 34.9 05/13/2018 9:07 AM WHEAT COMBINE DRIVER Plan of Treatment Health Maintenance Due Date Last Done Comments COLOGUARD (AGES 45-75) - COL ON CA SCREENING 1972 COLON MONITORING 1972 COLONOSCOPY - COLON CA SCREENING 1972 CT COLONOGRAPHY - COLON CA SCREENING 1972 Colorectal Cancer Screening 1972 FIT - COLON CA SCREENING 1972 FLEX SIG - COLON CA SCREENING 1972 LIPID TESTING 1972 MAMMOGRAM 1972 HIV SCREENING 09/21/1987 HEPATITIS C SCREENING 09/16/1990 DTAP/TDAP/TD VACCINES (1 - Tdap) 09/21/1991 HEPATITIS B VACCINE (1 of 3 - 19+ 3-dose series) 09/21/1991 SCREENING FOR DIABETES 02/21/2018 PNEUMOCOCCAL VACCINE 50+ (1 of 1 - PCV) 2022 ZOSTER VACCINE (1 of 2) 2022 COVID-19 VACCINE (1 - 2023-2 5 season) 2024 DEPRESSION SCREENING 07/05/2024 INFLUENZA VACCINE (Season Ended) 2025 HIB VACCINE Aged Out No longer eligi [...] on patient's age to complete this topic Insurance [facility] Care Teams Digital Media Producer Relationship Specialty Start Date End Date Javad Sher MD [address] [place] [address] PCP - General Family Medicine 02/21/18
[2024-12-06 13:59] LABS: Anion Gap 9 mmol/L (4-12); Blood Urea Nitrogen 15 mg/dL (7-17); Calcium 9.6 mg/dL (8.4-10.2); Carbon Dioxide 29 mmol/L (22-30); Chloride 99 mmol/L (98-107); Estimated Glomerular Filt Rate > 60; Glucose 114 mg/dL (65-110); Potassium 3.2 mmol/L (3.4-5.0); Sodium 137 mmol/L (137-145)
== END 2024-12-06 13:13 | disposition home or self-care (01) ==
LOC: ANHLAB 13:13
PROVIDERS: PCP Family Medicine; Visit Provider Family Medicine
DX: I10 Essential (primary) hypertension (principal)
CPT/HCPCS: 36415; 80048; 83735

== ENCOUNTER 2024-12-20 13:05 | Outpatient (CLI) | payer OTHER, SELFPAY ==
[2024-12-20 14:13] LABS: Anion Gap 9 mmol/L (4-12); Blood Urea Nitrogen 14 mg/dL (7-17); Calcium 9.4 mg/dL (8.4-10.2); Carbon Dioxide 28 mmol/L (22-30); Chloride 100 mmol/L (98-107); Estimated Glomerular Filt Rate > 60; Glucose 107 mg/dL (65-110); Magnesium 2.1 mg/dL (1.6-2.3); Potassium 3.7 mmol/L (3.4-5.0); Sodium 137 mmol/L (137-145)
--- OUTSIDE RECORDS SUMMARY | 2024-12-20 14:37 | XMS_ITS | Clinical Summary ---
Author Organization [facility] Address [address] [place] [address] Care Team Providers Care Optometrist Assistant Name Role Phone Javad Sher MD Primary Care Provider [phone] Source Comments [facility] and Associated Physician Practices is amultiple site organization consisting of ambulatory clinics and hospital sitesin [place], [place], [place] and [place]. This disclosure is being madepursuant to the Care Everywhere program and may not contain all information available regarding this patient. 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 Not on file Not on file Last Filed Vital Signs Vital Sign Reading Time Taken Comments Blood Pressure 135/82 05/13/2018 9:07 AM SIDE PANEL PADDER Pulse 91 05/13/2018 9:07 AM SIDE PANEL PADDER Temperature 36.5 C (97.7 F) 05/13/2018 9:07 AM SIDE PANEL PADDER Respiratory Rate 16 05/13/2018 9:07 AM SIDE PANEL PADDER Oxygen Saturation 99% 05/13/2018 9:07 AM SIDE PANEL PADDER Inhaled Oxygen Concentration - - Weight 89.4 kg (197 lb) 05/13/2018 9:07 AM SIDE PANEL PADDER Height 160 cm (5' 3) 05/13/2018 9:07 AM SIDE PANEL PADDER Body Mass Index 34.9 05/13/2018 9:07 AM SIDE PANEL PADDER Plan of Treatment Health Maintenance Due Date [...] patient's age to complete this topic Insurance [facility] Care Teams Optometrist Assistant Relationship Specialty Start Date End Date Javad Sher MD [address] [place] [address] PCP - General Family Medicine 02/21/18
== END 2024-12-20 13:06 | disposition home or self-care (01) ==
LOC: ANHLAB 13:06
PROVIDERS: PCP Family Medicine; Visit Provider Family Medicine
DX: E87.6 Hypokalemia (principal)
CPT/HCPCS: 36415; 80048; 83735

== ENCOUNTER 2024-12-25 15:10 | Outpatient (CLI) | payer OTHER, SELFPAY ==
--- NOTE | ~2024-12-25 | MR_ITS ---
MRI of the right knee Clinical history: In Technique: Coronal proton density and proton density-weighted images, sagittal proton-density and T2 fat-sat images, and axial proton-density fat-saturated images were acquired. Findings: Anterior and posterior cruciate ligaments are intact. Medial collateral ligament and the la teral collateral ligament complex are intact. Popliteus tendon is intact. Medial and lateral menisci are intact, without evidence of tear. There is extensive grade IV chondromalacia the patellar apex and lateral patellar facet. There is foc al mild to moderate chondromalacia the inferior femoral trochlea. There is patchy mild chondromalacia of the medial and lateral compartments. Tricompartmental osteophyte formation is present. Extensor mechanism is intact. Small to moderate joint effusion present. No Greer's cyst. 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 No ligamentous injury or meniscal tear seen. Reviewed, dictated and finalized at [facility]. Impression: Tricompartmental osteoarthritis, worst in the patellofemoral compartment, as de tailed above. No ligamentous injury or meniscal tear seen.
== END 2024-12-25 15:11 | disposition home or self-care (01) ==
PROVIDERS: PCP Family Medicine; Visit Provider Family Medicine
DX: M25.361 Other instability, right knee (principal); M17.11 Unilateral primary osteoarthritis, right knee
CPT/HCPCS: 73721

== ENCOUNTER 2025-02-02 07:05 | Outpatient (CLI) | payer OTHER, SELFPAY ==
--- NOTE | ~2025-02-02 | DEXA_ITS ---
Bone Density Report Name: EMMA MARIANO Age: 54 Sex: Female Ethnicity: White Date of : 1970 Indication: postmenopausal; screening for osteoporosis; Referring Provider: QAMAR PHILLIPS Study: Bone densitometry was performed. Exam Date: February 02, 2025 Accession number: [id number] Bone Density: Region BMD T-score Z-score Classification AP Spine(L1-L4) 1.160 1.0 1.9 Normal Femoral Neck (Left) 0.799 -0.4 0.4 Normal Total Hip (Left) 1.002 0.5 1.0 Normal Femoral Neck (Right) 0.833 -0.1 0.7 Normal Total Hip (Right) 1.029 0.7 1.3 Normal Total Hip Mean 1.015 0.6 1.2 Normal World Health Organization criteria for BMD impression classify patients as: Normal (T-score at or above -1.0), Osteopenia (T-score between -1.0 and -2.5), or Osteoporosis (T-score at or below -2.5). 10-year Fracture Risk: FRAX not reported because: All T-scores for Spine Total, Hip Total, Femoral Neck at or above -1.0 Clinical Information Provided by Patient: Has used the following medications: Vitamin D Patient maximum height was 62.5 Menopause Age: 42 No regular weight bearing exercise Drinks caffeinated beverages Onset of menses at age 16 Number of children 2 Impression: The patient has normal bone mass. Discussion: BONE DENSITY IS ABOVE THE MINIMUM DESIRABLE LEVEL AT ALL SKELETAL SITES TESTED. This patient?s bone mineral density is above the minimum desirable level (T-score -1.0 or better) at all sites measured. The patient should follow a healthful lifestyle (good nutrition with adequate calcium and vitamin D, and appropriate weight-bearing exercise). Follow-Up: Consider repeating this study in 5 years or sooner if there is some new clinical indication. Reported by: ZENA on 02/02/2025 7:47:00 AM. Reviewed, dictated and finalized at location A.
--- OUTSIDE RECORDS SUMMARY | 2025-02-02 07:08 | XMS_ITS | Clinical Summary ---
Author Organization [facility] Address [address] [place] [address] Care Team Providers Care Spud Driller Name Role Phone Javad Sher MD Primary Care Provider [phone] Source Comments [facility] and Associated Physician Practices is amultiple site organization consisting of ambulatory clinics and hospital sitesin [place], [place], [place] and [place]. This disclosure is being madepursuant to the Care Everywhere program and may not contain all information available regarding this patient. 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 Not on file Not on file Last Filed Vital Signs Vital Sign Reading Time Taken Comments Blood Pressure 135/82 05/13/2018 9:07 AM CUSTOMER ACCOUNT REPRESENTATIVE Pulse 91 05/13/2018 9:07 AM CUSTOMER ACCOUNT REPRESENTATIVE Temperature 36.5 C (97.7 F) 05/13/2018 9:07 AM CUSTOMER ACCOUNT REPRESENTATIVE Respiratory Rate 16 05/13/2018 9:07 AM CUSTOMER ACCOUNT REPRESENTATIVE Oxygen Saturation 99% 05/13/2018 9:07 AM CUSTOMER ACCOUNT REPRESENTATIVE Inhaled Oxygen Concentration - - Weight 89.4 kg (197 lb) 05/13/2018 9:07 AM CUSTOMER ACCOUNT REPRESENTATIVE Height 160 cm (5' 3) 05/13/2018 9:07 AM CUSTOMER ACCOUNT REPRESENTATIVE Body Mass Index 34.9 05/13/2018 9:07 AM CUSTOMER ACCOUNT REPRESENTATIVE Plan of Treatment Health Maintenance Due Date [...] season) 2024 DEPRESSION SCREENING 07/05/2024 INFLUENZA VACCINE (#1) 2025 HIB VACCINE Aged Out No longer [...] patient's age to complete this topic Insurance [facility] Care Teams Spud Driller Relationship Specialty Start Date End Date Javad Sher MD [address] [place] [address] PCP - General Family Medicine 02/21/18
== END 2025-02-02 07:06 | disposition home or self-care (01) ==
LOC: ANHIMG 07:06
PROVIDERS: PCP Family Medicine; Visit Provider Nurse Practitioner Adult Health
DX: Z78.0 Asymptomatic menopausal state (principal)
CPT/HCPCS: 77080

== ENCOUNTER 2025-03-08 08:59 | Outpatient (CLI) | payer OTHER, SELFPAY ==
--- NOTE | ~2025-03-08 | NM_ITS ---
EXAMINATION: NM stress w perf spect multi DATE: 03/08/2025 11:14 INDICATION: Precordial chest pain and tachycardia. Hyperlipidemia. Long QT syndrome. TECHNIQUE: Rest images were obtained following intravenous administration of 10 mCi Tc99m tetrofosmin (Myoview). The patient performed an exercise activity. At peak exercise, 31.1 mCi Tc99m tetrofosmin (Myoview) was administered intravenously, and stress images were obtained. Data was reconstructed into short axis and horizontal and vertical long axis SPECT images. Gated SPECT images were also obtained. COMPARISON: None. FINDINGS: There is normal left ventricular perfusion without definite evidence of reversible or fixed perfusion abnormality to suggest ischemia or infarction. There is normal left ventricular chamber size, wall motion and ejection fraction. Left ventricular ejection fraction measures 66%. IMPRESSION: 1. Normal myocardial perfusion at rest and during stress. 2. Left ventricular ejection fraction measuring 66%. Reviewed, dictated and finalized at location A.
--- OUTSIDE RECORDS SUMMARY | 2025-03-08 09:13 | XMS_ITS | Clinical Summary ---
Author Organization [facility] Address [address] [place] [address] Care Team Providers Care Field Evidence Technician Name Role Phone Javad Sher MD Primary Care Provider [phone] Source Comments [facility] and Associated Physician Practices is amultiple site organization consisting of ambulatory clinics and hospital sitesin [place], [place], [place] and [place]. This disclosure is being madepursuant to the Care Everywhere program and may not contain all information available regarding this patient. Last updated 18.[employer] 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 Not on file Not on file Last Filed Vital Signs Vital Sign Reading Time Taken Comments Blood Pressure 135/82 05/13/2018 9:07 AM HEALTHCARE CONSULTANT Pulse 91 05/13/2018 9:07 AM HEALTHCARE CONSULTANT Temperature 36.5 C (97.7 F) 05/13/2018 9:07 AM HEALTHCARE CONSULTANT Respiratory Rate 16 05/13/2018 9:07 AM HEALTHCARE CONSULTANT Oxygen Saturation 99% 05/13/2018 9:07 AM HEALTHCARE CONSULTANT Inhaled Oxygen Concentration - - Weight 89.4 kg (197 lb) 05/13/2018 9:07 AM HEALTHCARE CONSULTANT Height 160 cm (5' 3) 05/13/2018 9:07 AM HEALTHCARE CONSULTANT Body Mass Index 34.9 05/13/2018 9:07 AM HEALTHCARE CONSULTANT Plan of Treatment Health Maintenance Due Date [...] patient's age to complete this topic Insurance [facility] Care Teams Field Evidence Technician Relationship Specialty Start Date End Date Javad Sher MD [address] [place] [address] PCP - General Family Medicine 02/21/18
--- NOTE | 2025-03-08 09:39 | ECG_ITS ---
Test Date: 2025-03-08 11:21:04 Measurements Intervals [place] Rate: 90 P: 26 IN: 162 QRS: 0 QRSD: 96 T: 4 QT: 386 QTc: 473 Interpretive Statements SINUS RHYTHM LEFT VENTRICULAR HYPERTROPHY AND ST-T WAVE CHANGES No previous ECG available for comparison Electronically Signed On 03-08-2025 11:42:15 CDT by Theodore Mathew M.D.
--- NOTE | 2025-03-08 09:39 | EST_ITS ---
Patient Info Name: Julia Brand Age: 54 years : 1970 Gender: Female Ht: 62 in Wt: 256 lbs BSA: 2.33 m2 HR: 93 bpm BP: 147 / 94 mmHg Exam Date: 03/08/2025 9:39 AM Patient Status: O Admit Date: 03/08/2025 Exam Type: CA stress test treadmill w NM A nuclear stress test was performed. Staff Referring Physician: Javad Sher MD Attending Provider: Javad Sher MD Exercise Technologist: Hoda Peterson Exercise Physician: Ger Lopez DO Summary 1. 1. Negative Bubba exercise stress test for ischemic ST changes by ECG criteria. 2. 2. Reduced functional capacity, achieving 6.5 METs of workload. 3. 3. Baseline hypertension with hypertensive response to exercise. 4. 4. Appropriate HR response to exercise. 5. 5. Appropriate HR recovery at 1 minute post exercise. 6. 6. Nuclear scan to follow and will be reported separately. Please correlate with it. 7. 7. Patient informed of the above results. Protocol: Bubba Stress ECG Details Stage: REST Duration (min): 1 min : 27 sec Speed (mph): 0.0 Grade (%): 0 HR (bpm): 93 SBP (mmHg): 147 DBP (mmHg): 94 METS: --- Stage: REST Duration (min): 8 min : 30 sec Speed (mph): 0.0 Grade (%): 0 HR (bpm): 95 SBP (mmHg): 147 DBP (mmHg): 94 METS: --- Stage: STAGE 1 Duration (min): 1 min : 0 sec Speed (mph): 1.7 Grade (%): 10 HR (bpm): 125 SBP (mmHg): 147 DBP (mmHg): 94 METS: --- Stage: STAGE 1 Duration (min): 2 min : 0 sec Speed (mph): 1.7 Grade (%): 10 HR (bpm): 135 SBP (mmHg): 147 DBP (mmHg): 94 METS: --- Stage: STAGE 1 Duration (min): 3 min : 0 sec Speed (mph): 1.7 Grade (%): 10 HR (bpm): 145 SBP (mmHg): 196 DBP (mmHg): 84 METS: --- Stage: STAGE 2 Duration (min): 1 min : 0 sec Speed (mph): 2.5 Grade (%): 12 HR (bpm): 153 SBP (mmHg): 196 DBP (mmHg): 84 METS: --- Stage: STAGE 2 Duration (min): 1 min : 0 sec Speed (mph): 2.5 Grade (%): 12 HR (bpm): 153 SBP (mmHg): 196 DBP (mmHg): 84 METS: --- Stage: RECOVERY Duration (min): 0 min : 59 sec Speed (mph): 0.0 Grade (%): 0 HR (bpm): 150 SBP (mmHg): 235 DBP (mmHg): 82 METS: --- Stage: RECOVERY Duration (min): 1 min : 59 sec Speed (mph): 0.0 Grade (%): 0 HR (bpm): 130 SBP (mmHg): 235 DBP (mmHg): 82 METS: --- Stage: RECOVERY Duration (min): 2 min : 59 sec Speed (mph): 0.0 Grade (%): 0 HR (bpm): 122 SBP (mmHg): 210 DBP (mmHg): 84 METS: --- Stage: RECOVERY Duration (min): 3 min : 59 sec Speed (mph): 0.0 Grade (%): 0 HR (bpm): 114 SBP (mmHg): 210 DBP (mmHg): 84 METS: --- Stage: RECOVERY Duration (min): 4 min : 59 sec Speed (mph): 0.0 Grade (%): 0 HR (bpm): 113 SBP (mmHg): 186 DBP (mmHg): 89 METS: --- Stage: RECOVERY Duration (min): 5 min : 59 sec Speed (mph): 0.0 Grade (%): 0 HR (bpm): 111 SBP (mmHg): 186 DBP (mmHg): 89 METS: --- Stage: RECOVERY Duration (min): 6 min : 59 sec Speed (mph): 0.0 Grade (%): 0 HR (bpm): 106 SBP (mmHg): 176 DBP (mmHg): 90 METS: --- Stage: RECOVERY Duration (min): 7 min : 13 sec Speed (mph): 0.0 Grade (%): 0 HR (bpm): 108 SBP (mmHg): 176 DBP (mmHg): 90 METS: --- Rest HR: 95 bpm Peak HR: 156 bpm Rest Sys BP: 147 mmHg Peak Sys BP: 235 mmHg Max Pred HR: 168 bpm % Max Pred HR: 93 % Target HR: 143 bpm Max RPP: 36,660 bpm*mmHg Cast Score: -2 BP Response: Patient exhibited a hypertensive response with stress Termination Reason: Reached target heart rate or workload Cardiac Symptoms: Shortness of breath Max ST Seg Deviation: -1.20 mm Total Time: 4 min : 0 sec Rest Loyd BP: 94 mmHg Peak Loyd BP: 82 mmHg Angina Score: None Total METS: 6.5 Resting ECG Sinus rhythm. Stress ECG No ST changes. Arrhythmias None. Report Signatures
== END 2025-03-08 09:00 | disposition home or self-care (01) ==
PROVIDERS: PCP Family Medicine; Visit Provider Family Medicine
DX: R07.9 Chest pain, unspecified (principal); R07.2 Precordial pain; E78.5 Hyperlipidemia, unspecified; R00.0 Tachycardia, unspecified; I45.81 Long QT syndrome
CPT/HCPCS: 78452; 93005; 93017; A9502

== ENCOUNTER 2025-04-18 13:06 | Outpatient (CLI) | payer OTHER, SELFPAY ==
--- OUTSIDE RECORDS SUMMARY | 2025-04-17 11:00 | XMS_ITS | Encounter Summary ---
Author Organization [facility] Address [address] [place] [address] Care Team Providers Care Music Sound Light Technician Name Role Phone Javad Sher MD Primary Care Provider [phone] Reason for Referral * Consultation (Routine) - Pending Review Specialty Diagnoses / Procedures Referred By Contac t Referred To Contact Sleep Medicine Diagnoses Class 3 severe obesity without serious comorbidity with body mass index (BMI) of 45.0 to 49.9 in adult, unspecified obesity type Theodore Mathew MD [address] [facility] [address] [address] Phone: tel: fax: [facility] Sleep Medicine [address] [place] [address] Phone: tel: fax: Referral ID Status Reason Start Date Expiration Date Visits Requested Visits Authorized [id number] Pending Review Specialty Services Required 05/17/2026 1 1 Question Answer Please select the performing region: [facility] [[id number]] Please select the performing department: [facility] [[id number]] # of visits: 1 * Cardiology (Routine) - Pending Review Specialty Diagnoses / Procedures Referred By Contac t Referred To Contact Diagnoses Class 3 severe obesity without serious comorbidity with body mass index (BMI) of 45.0 to 49.9 in adult, unspecified obesity type Procedures Transthoracic Echo (TTE) Complete W Doppler/CF Theodore Mathew MD [address] [facility] [address] [place] [address] Phone: tel: fax: [facility] Cardiology [address] [place] [address] Phone: tel: fax: Referral ID Status Reason Start Date Expiration Date V isits Requested Visits Authorized [id number] Pending Review 04/17/2025 05/17/2026 1 1 Reason for Visit * Reason Comments New Patient Encounter Details Date Type Department Care Team (Late st Contact Info) Description 04/17/2025 11:00 AM CDT Office Visit [facility] Medical [facility] Cardiology [address] [place] [address] [place] [address] Theodore Mathew MD [address] [place] [address] [address] [place] [address] Lipid screening (Primary Dx); Class 3 severe obesity without serious comorbidity with body mass index (BMI) of 45.0 to 49.9 in adult, unspecified obesity type Social History Tobacco Use Types Packs/Day Years Used Date Smoking Tobacco: Never Tobacco Cessation:Counseling Given: Not Answered Comments Unknown Sex and Gender Information Value Date Recorded Sex Assigned at Not on file Legal Sex Female 5:59 PM MUTUEL CLERK Gender Identity Not on file Sexual Orientation Not on file documented as of this encounter Last Filed Vital Signs Vital Sign Reading Time Taken Comments Blood Pressure 152/100 04/17/2025 11:22 AM CDT Pulse 103 04/17/2025 11:22 AM CDT Temperature - - Respiratory Rate 20 04/17/2025 11:22 AM CDT Oxygen Saturation 98% 04/17/2025 11:22 AM CDT Inhaled Oxygen Concentration - - Weight 119.3 kg (263 lb) 04/17/2025 11:22 AM CDT Height 157.5 cm (5' 2) 04/17/2025 11:22 AM CDT Body Mass Index 48.1 04/17/2025 11:22 AM CDT documented in this encounter Ordered Prescriptions Prescription Sig Dispense Quantity Refills Last Filled Start Date End Date rosuvastatin (CRESTOR) 10 mg tablet Take 1 tablet (10 mg total) by mouth nightly 90 tablet 3 04/17/2025 6 documented in this encounter Progress Notes * Theodore Mathew MD - 04/17/2025 11:00 AM CDT [facility] CARDIOLOGY CHIEF COMPLAINT / REASON FOR CONSULT: Long QTC Referral: Dr. Sher HISTORY: Julia Brand is a 54 y.o. female with morbid obesity, hypertension, and hyperlipidemia who was referred for long QTC noted on EKG. No recent syncopal events. Has been having a lot ofchest discomfort especially with physical activity however the chest pain/pressure is not consistently associated with physical exertion. On the treadmill stress test with myocardial perfusion imaging she was able to achieve 6.5 METS however did develop some chest pressure. Follow up myocardial perfusion imaging was normal with normal left ventricular ejection fraction. These symptoms started around November of this year and seems to has been causing considerable stress for her as she is not able tocarry out certain level of physical activity at times. She also states that she is under considerable stress from the results of her cardiac workup from EKGs to her stress test and evident by tearfulness when discussing some of the results. Overall throughout the visit, the results were fully discussed and explained. Reassurance was provided and plan was developed in conjunction with the patient. Exercise Tolerance: 6.5 METS Social: Denies tobacco use Family History: Paternal grandfather had cardiac conditions Medications: Rosuvastatin 10 mg every evening Hydrochlorothiazide 25 mg p.o. daily Spironolactone 25 mg p.o. daily Diltiazem 60 mg p.o. b.i.d. REVIEW OF SYSTEMS: GENERAL: As per HPI CVS: As per HPI HEME: No bruising, no bleeding PHYSICAL EXAMINATION: BP 152/100 (BP Location: Right arm, Patient Position: Sitting) Pulse 103 Resp 20 Ht 157.5 cm (5' 2) Wt 119.3 kg (263 lb) SpO2 98% BMI 48.10 kg/m?? GENERAL: Alert, in no distress HEAD: Normocephalic and atraumatic EYES: Extraocular movement intact ENT: Unremarkable NECK: no jugular venous distention CHEST: Clear to auscultation, no wheezes, rales or rhonchi, symmetric air entry CARDIAC: Regular rate and rhythm, S1 S2 normal, no murmur, rub, heaves, thrills or gallops ABDOMEN: soft, nontender, no bruit EXTREMITIES: No edema PERIPHERAL PULSES: Peripheral pulses symmetrical SKIN: Warm and dry NEURO: Alert and oriented x 3 LABS: No results found for: CHOL No results found for: HDL No results found for: LDLCALC No results found for: TRIG No results found for: CHOLHDL No results found for: HGBA1C CARDIAC IMAGING RESULTS REVIEW: Echo Cardiac CT Stress Test 03/2025: 6.5 METS. Normal perfusion. Normal LVEF Cardiac Monitors Cath ASSESSMENT/PLAN: 54 y.o. female with morbid obesity, hypertension, and hyperlipidemia who was referred for long QTC noted on EKG Exertional chest discomfort -Myocardial perfusion imaging normal -She was started on diltiazem 60 mg p.o. b.i.d. -Follow up with transthoracic echocardiogram -We have advised moderate intensity exercise regimen as well as healthy dietary changes with goal weight loss in mind -Should she continued to have difficulties, we can trial her on carvedilol as well as isosorbide mononitrate Hypertension -We discussed how weight loss can help with better blood pressure control -Today she mentioned several occasions of several different drugs that she is unable to tolerate and she has had difficulty tolerating many different types of drugs in the past -Currently seems to be tolerating spironolactone 25 mg p.o. daily and hydrochlorothiazide 25 mg p.o. daily -Thyroid panel normal last year -We discussed the utility of sleep medicine referral for sleep study in light of her obesity as well as hypertension Hyperlipidemia -States that atorvastatin causes tongue swelling -We will trial her on rosuvastatin 10 mg every evening -If she is unable to tolerate this, we will trial her on simvastatin next Return to clinic in 3 months Theodore Mathew MD Voice recognition software was used to complete this document, therefore, erisa attorney variances may occur. documented in this encounter Plan of Treatment Scheduled Orders Name Type Priority Associated Diagnoses Orde r Schedule Transthoracic Echo (TTE) Complete W Doppler/CF Echocardiography Routine Class 3 severe obesity without serious comorbidity with body mass index (BMI) of 45.0 to 49.9 in adult, unspecified obesity type Expected: 04/17/2025 (Approximate), Expires: 07/18/2025 Scheduled Referrals Name Type Priority Associated Diagnoses Orde r Schedule Ambulatory referral to Sleep Medicine Outpatient Referral Routine Class 3 severe obesity without serious comorbidity with body mass index (BMI) of 45.0 to 49.9 in adult, unspecified obesity type Ordered: 04/17/2025 documented as of this encounter Procedures Procedure Name Priority Date/Time Associated Diagnosis Comments POCT LIPID PANEL Routine 04/17/2025 11:1 3 AM CDT Lipid screening documented in this encounter Results * (ABNORMAL) POCT lipid panel (04/17/2025 11:13 AM CDT) Cholesterol, POC 285 <200 MG/DL HDL, POC 47 >=40 mg/dL Triglycerides, POC 237(A) <=149 mg/dL LDL Cholesterol POC 191(A) <=129 mg/dL Chol/HDL Ratio, POC 4.1 NONE Non-HDL Cholesterol, POC 238 NONE mg/dL Cholesterol Total, POC 285(A) 30 - 199 mg/dL Capillary blood 04/17/2025 1 1:13 AM CDT Theodore Mathew MD POINT OF CARE TEST ORDERABLES Fi nal Result documented in this encounter Visit Diagnoses Diagnosis Lipid screening- Primary Screening for lipoid disorders Class 3 severe obesity without serious comorbidity with body mass index (BMI) of 45.0 to 49.9 in adult, unspecified obesity type documented in this encounter Historical Medications * This list may reflect changes made after this encounter. olopatadine (PATADAY) 0.2 % ophthalmic solutionIndications :Allergic Conjunctivitis [address] (CYMBALTA) 60 mg capsule Take 1 capsule (60 mg total) by mouth daily spironolactone (ALDACTONE) 25 mg tablet Take 1 tablet (25 mg total) by mouth daily 03/12/2025 omeprazole (PriLOSEC) 40 mg capsule Take 1 capsule (40 mg total) by mouth daily 02/05/2025 montelukast (SINGULAIR) 10 mg tablet Take 1 tablet (10 mg total) by mouth daily 04/09/2025 meloxicam (MOBIC) 15 mg tablet Take 0.5 tablets (7.5 mg total) by mouth daily 04/11/2025 hydroCHLOROthiazide (HYDRODIURIL) 25 mg tablet Take 1 tablet (25 mg total) by mouth daily 02/14/2025 fluticasone propionate (FLONASE) 50 mcg/actuation nasal spray Administer 2 sprays into affected nostril(s) daily dilTIAZem SR (CARDIZEM SR) 60 mg 12 hr capsule Take 1 capsule (60 mg total) by mouth 2 (two) times a day 04/10/2025 cholecalciferol (VITAMIN D-3) 5,000 unit capsule Take 125 mcg by mouth daily 02/17/2024 Airsupra 90-80 mcg/actuation HFA aerosol inhaler Inhale 90 mg 2 (two) times a day 04/09/2025 added in this encounter Care Teams Music Sound Light Technician Relationship Specialty Start Date End Date Javad Sher MD [address] [place] [address] PCP - General Family Medicine 04/17/25 documented as of this encounter
--- OUTSIDE RECORDS SUMMARY | 2025-04-18 15:00 | XMS_ITS | Clinical Summary ---
Author Organization [facility] [address] Address [address] [place] [address] Care Team Providers Care Final Armature Tester Name Role Phone Javad Sher MD Primary Care Provider [phone] Allergies Active Allergy Reactions Criticality Noted Date Comments Atorvastatin Other (See comments),Swollen tongue High 12/19/2024 Azithromycin Stomach upset Low 12/19/2024 extreme nausea, stomach pain, cramping Ezetimibe Joint pain Low 12/19/2024 Lisinopril Cough Low 12/19/2024 Medications Airsupra 90-80 mcg/actuation HFA aerosol inhaler Inhale 90 mg 2 (two) times a day 5 Active cholecalciferol (VITAMIN D-3) 5,000 unit capsule Take 125 mcg by mouth daily 4 Active dilTIAZem SR (CARDIZEM SR) 60 mg 12 hr capsule Take 1 capsule (60 mg total) by mouth 2 (two) times a day 5 Active fluticasone propionate (FLONASE) 50 mcg/actuation nasal spray Administer 2 sprays into affected nostril(s) daily Active hydroCHLOROthiazid e (HYDRODIURIL) 25 mg tablet Take 1 tablet (25 mg total) by mouth daily 5 Active meloxicam (MOBIC) 15 mg tablet Take 0.5 tablets (7.5 mg total) by mouth daily 5 Active montelukast (SINGULAIR) 10 mg tablet Take 1 tablet (10 mg total) by mouth daily 5 Active omeprazole (PriLOSEC) 40 mg capsule Take 1 capsule (40 mg total) by mouth daily 5 Active spironolactone (ALDACTONE) 25 mg tablet Take 1 tablet (25 mg total) by mouth daily [address] (CYMBALTA) 60 mg capsule Take 1 capsule (60 mg total) by mouth daily Active olopatadine (PATADAY) 0.2 % ophthalmic solutionIndication s:Allergic Conjunctivitis 1 drop daily Ac tive rosuvastatin (CRESTOR) 10 mg tablet Take 1 tablet (10 mg total) by mouth nightly 90 tablet 3 5 026 Active Active Problems Problem Noted Date Diagnosed Date Essential hypertension 04/17/2025 Encounters Date Type Department Care Team Description 04/17/2025 11:00 AM CDT Office Visit [facility] Cardiology [address] [place] [address] [address] [place] [phone] Theodore Mathew MD Lipid screening (Primary Dx); Class 3 severe obesity without serious comorbidity with body mass index (BMI) of 45.0 to 49.9 in adult, unspecified obesity type 04/17/2025 Orders Only [facility] Medical [facility] Cardiology [address] [place] [address] [address] Provider, MD Kenisha from Last 3 Months Social History Tobacco Use Types Packs/Day Years Used Date Smoking Tobacco: Never Tobacco Cessation:Counseling Given: Not Answered Comments Unknown Sex and Gender Information Value Date Recorded Sex Assigned at Not on file 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 Gender Identity Not on file Sexual Orientation Not on file Obstetrics History Last Filed Vital Signs Vital Sign Reading [...] Mass Index 48.1 04/17/2025 11:22 AM CDT Plan of Treatment Health Maintenance Due Date Last Done Comments Breast Cancer Screening-Mammogram 1972 Cervical Cancer Screening 1972 Colon Cancer Screening-Colonoscopy 1972 Depression Screening 1972 Hepatitis C Screening 1972 DTaP/Tdap/Td Vaccine (1 - Tdap) 09/21/1983 Hepatitis B Screening 1990 Regular Well Visit/Exam 18-64 1990 Zoster Vaccine (1 of 2) 2022 Covid-19 Vaccine (4 - 2024-2 6 season) 2025 11/07/2021, 04/04/2021, 03/07/2021 Influenza Vaccine (#1) 2025 6, 03/21/2015, 03/14/2014 Pneumococcal vaccine <65 Aged Out No longer eligible based on patient's age to complete this topic Procedures Procedure Name Priority Date/Time Associated Diagnosis Comments POCT LIPID PANEL Routine 04/17/2025 11:1 3 AM CDT Lipid screening ECG 12-LEAD Routine 03/08/2025 1:49 PM CDT STRESS TEST ONLY TREADMILL Routine 03/08/2025 1:48 PM CDT from Last 3 Months Results * (ABNORMAL) POCT lipid panel (04/17/2025 [...] OF CARE TEST ORDERABLES Fi nal Result * ECG 12 lead (03/08/2025 1:49 PM CDT) us Historical Provider ECG ORDERABLES Edited Re sult - Final * Stress Treadmill Test (03/08/2025 1:48 PM CDT) Anatomical Region Laterality Modality Other us Historical Provider CV STRESS PROCEDURES Edit ed Result - Final from Last 3 Months Insurance [facility] H[facility]/PPO Address: [facility] [address] [place] [address] Care Teams Final Armature Tester Relationship Specialty Start Date End Date Javad Sher MD [address] [place] [address] PCP - General Family Medicine 04/17/25
--- OUTSIDE RECORDS SUMMARY | 2025-04-18 15:00 | XMS_ITS | Encounter Summary ---
Author Organization [facility] Address [address] [place] [address] Care Team Providers Care Boiling Off Winder Name Role Phone Javad Sher MD Primary Care Provider [phone] Reason for Referral * Cardiology (Routine) - Closed Specialty Diagnoses / Procedures Referred By Contac t Referred To Contact Procedures ECG 12 lead Kenisha Robles MD [address] [place] [address] Phone: tel: Referral ID Status Reason Start Date Expiration Date Visits Re quested Visits Authorized [id number] Closed 04/17/2025 05/17/2026 1 1 * Cardiology (Routine) - Closed Specialty Diagnoses / Procedures Referred By Contac t Referred To Contact Procedures Stress Treadmill Test Kenisha Robles MD [address] [place] [address] Phone: tel: Referral ID Status Reason Start Date Expiration Date Visits Re quested Visits Authorized [id number] Closed 04/17/2025 05/17/2026 1 1 Encounter Details Date Type Department Care Team (Late st Contact Info) Description 04/17/2025 Orders Only [facility] Cardiology [address] [place] [address] Kenisha Robles MD [address] [place] [address] Social History Tobacco Use Types Packs/Day Years Used Date Smoking Tobacco: Never Comments Unknown Sex and Gender Information Value Date Recorded Sex Assigned at Not on file 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 Gender Identity Not on file Sexual Orientation Not on file documented as of this encounter Plan of Treatment Not on file documented as of this encounter Procedures Procedure Name Priority Date/Time Associated Diagnosis Comments ECG 12-LEAD Routine 03/08/2025 1:49 PM CDT STRESS TEST ONLY TREADMILL Routine 03/08/2025 1:48 PM CDT documented in this encounter Results * ECG 12 lead (03/08/2025 1:49 PM CDT) us Historical Provider ECG ORDERABLES Edited Re sult - Final * Stress Treadmill Test (03/08/2025 1:48 PM CDT) Anatomical Region Laterality Modality Other us Historical Provider CV STRESS PROCEDURES Edit ed Result - Final documented in this encounter Visit Diagnoses Not on filedocumented in this encounter Care Teams Boiling Off Winder Relationship Specialty Start Date End Date Javad Sher MD [address] [place] [address] PCP - General Family Medicine 04/17/25 documented as of this encounter
--- OUTSIDE RECORDS SUMMARY | 2025-04-18 15:00 | XMS_ITS | Clinical Summary ---
Author Organization [facility] Address [address] [place] [address] Care Team Providers Care Informatics Spec Name Role Phone Javad Sher MD Primary Care Provider [phone] Source Comments [facility] and Associated [facility]ician Practices is amultiple site organization consisting of ambulatory clinics and hospital sitesin [place], [place], [place] and [place]. This disclosure is being madepursuant to the Care Everywhere program and may not contain all information available regarding this patient. 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 Not on file Not on file Last Filed Vital Signs Vital Sign Reading Time Taken Comments Blood Pressure 135/82 05/13/2018 9:07 AM [employer] Pulse 91 05/13/2018 9:07 AM [employer] Temperature 36.5 C (97.7 F) 05/13/2018 9:07 AM [employer] Respiratory Rate 16 05/13/2018 9:07 AM [employer] Oxygen Saturation 99% 05/13/2018 9:07 AM [employer] Inhaled Oxygen Concentration - - Weight 89.4 kg (197 lb) 05/13/2018 9:07 AM GANG [employer]WYER Height 160 cm (5' 3) 05/13/2018 9:07 AM [employer] Body Mass Index 34.9 05/13/2018 9:07 AM [facility] Plan of Treatment Health Maintenance Due Date [...] 2022 ZOSTER VACCINE (1 of 2) 2022 DEPRESSION SCREENING 07/05/2024 COVID-19 VACCINE (1 - 2023-2 5 season) 2025 INFLUENZA VACCINE (#1) 2025 HIB VACCINE Aged [...] patient's age to complete this topic Insurance [facility] Care Teams Informatics Spec Relationship Specialty Start Date End Date Javad Sher MD [address] [place] [address] PCP - General Family Medicine 02/21/18
--- NOTE | 2025-04-19 09:01 | WPDPFTINT ---
PFT Procedure Performed PFT Procedure Performed Spirometry with Pre/Post Bronchodilator Plethysmography (Lung Vol) Diffusing Cap (DLCO) Flow Vol Loop PFT Interpretation This is a pulmonary function test with pre and post-bronchodilator spirometry, plethysmography and diffusing capacity. The test was performed and results interpreted in accordance with the 2019 and 2005 ATS/ERS Task Force guidelines respectively using the Global Lung Function Initiative-2012 reference equations. Patient demonstrated good effort and cooperation. Reproducibility criteria were met. The quality of the pre bronchodilator spirometry maneuver was Grade A and post bronchodilator spirometry maneuver was Grade A. Findings: Spirometry: The contour the inspiratory and expiratory flow tracing is normal. The pre bronchodilator FVC is 3.25 L, 99% predicted. The pre bronchodilator FEV1 is 2.56 L, 98% predicted. The pre bronchodilator FEV1: FVC ratio is 79%. The post bronchodilator FVC is 3.20 L, representing a 2% decrease. The post bronchodilator FEV1 is 2.71 L, representing a 6% increase. The post bronchodilator FEV1: FVC ratio is 85%. Plethysmography: The total lung capacity is 4.26 L, 87% predicted. The functional residual capacity is 1.94 L, 71% predicted. The residual volume is 1.01 L, 57% predicted. Diffusing capacity: The diffusing capacity unadjusted for hemoglobin and carboxyhemoglobin is 18.4, 83% predicted. The diffusing capacity adjusted for alveolar volume is 4.79, 104% predicted. Impression: The spirometry is normal without evidence of an obstructive abnormality. There is no significant improvement after inhaling a single dose of albuterol. The lung volumes are normal. The diffusing capacity is normal. There are no prior studies for comparison
== END 2025-04-18 13:07 | disposition home or self-care (01) ==
PROVIDERS: PCP Family Medicine; Visit Provider Family Medicine
DX: J45.20 Mild intermittent asthma, uncomplicated (principal)
CPT/HCPCS: 94060; 94726; 94729

== ENCOUNTER 2025-05-18 03:42 | Day surgery (SDC) | payer OTHER, SELFPAY ==
[2025-05-15 15:31] VITALS: BMI 48.6
--- OUTSIDE RECORDS SUMMARY | 2025-05-18 03:45 | XMS_ITS | Encounter Summary ---
Author Organization [facility] Address [address] [place] [address] Care Team Providers Care Plant Protection Officer Name Role Phone Javad Sher MD Primary Care Provider [phone] Encounter Details Date Type Department Care Team (Late st Contact Info) Description 05/15/2025 Telephone [facility] Cardiology [address] [place] [address] Theodore Mathew MD [address] [place] [address] Social History Tobacco Use Types Packs/Day Years Used Date Smoking Tobacco: Never Comments Unknown Sex and Gender Information Value Date Recorded Sex Assigned at Not on file 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 Also requesting most recent office visit note be faxed to their office. Thank you. Contact: ANT POLISHER documented in this encounter Plan of Treatment Not on file documented as of this encounter Visit Diagnoses Not on filedocumented in this encounter Care Teams Plant Protection Officer Relationship Specialty Start Date End Date Javad Sher MD [address] [place] [address] PCP - General Family Medicine 04/17/25 documented as of this encounter
--- OUTSIDE RECORDS SUMMARY | 2025-05-18 03:45 | XMS_ITS | Clinical Summary ---
Author Organization [facility] [employer] Address [address] [place] [address] Care Team Providers Care Prison Guard Name Role Phone Javad Sher MD Primary Care Provider [phone] Source Comments [facility] [employer],non-[facility] and Associated Physician Practices is amultiple site organization consisting of ambulatory clinics and hospital sitesin [place], [place], [place] and [place]. This disclosure is being madepursuant to the Care Everywhere program and may not contain all information available regarding this patient. 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 Not on file Not on file Last Filed Vital Signs Vital Sign Reading Time Taken Comments Blood Pressure 135/82 05/13/2018 9:07 AM MS ACCESS DATABASE DEVELOPER Pulse 91 05/13/2018 9:07 AM MS ACCESS DATABASE DEVELOPER Temperature 36.5 C (97.7 F) 05/13/2018 9:07 AM MS ACCESS DATABASE DEVELOPER Respiratory Rate 16 05/13/2018 9:07 AM MS ACCESS DATABASE DEVELOPER Oxygen Saturation 99% 05/13/2018 9:07 AM MS ACCESS DATABASE DEVELOPER Inhaled Oxygen Concentration - - Weight 89.4 kg (197 lb) 05/13/2018 9:07 AM MS ACCESS DATABASE DEVELOPER Height 160 cm (5' 3) 05/13/2018 9:07 AM MS ACCESS DATABASE DEVELOPER Body Mass Index 34.9 05/13/2018 9:07 AM MS ACCESS DATABASE DEVELOPER Plan of Treatment Health Maintenance Due Date [...] patient's age to complete this topic Insurance [facility] Address: [facility] [address] [place] [address] Care Teams Prison Guard Relationship Specialty Start Date End Date Javad Sher MD [address] [place] [address] PCP - General Family Medicine 02/21/18
[2025-05-18 06:22] VITALS: BP 153/113; PULSE 91; RESP 20; TEMP 36.1; O2SAT 96; BMI 49.2
[2025-05-18] MEDS: LACTATED RINGERS 1,000 ML 150 ML IV CONT (06:35)
[2025-05-18 06:37] VITALS: BP 144/81
--- NOTE | 2025-05-18 07:31 | P.HP_ITS ---
History of Present Illness History of Present Illness Consent: Risks, benefits, and alternatives have been discussed and questions answered. Patient agrees to proceed with procedure. Chief complaint: GERD Narrative: Julia Brand is a 54 year old female here for egd, h/o gerd and cough on omeprazole Review of Systems Review of Systems: All systems reviewed & are unremarkable except as noted in HPI and below PMFSH Past Medical History Medical History Chronic cough Obesity (BMI 30-39.9) Post-menopausal Elevated liver enzymes Tinea corporis Stress due to illness of family member ADD (attention deficit disorder) Degenerative lumbar disc Right hip pain Low libido Low back pain Recurrent sinusitis Cough COVID-19 Exposure to COVID-19 virus Low vitamin D level Chronic low back pain Right leg pain Sinusitis Palpable mass of soft tissue of knee Allergies Muscle spasms of neck Abnormal mammogram Constipation Surgical History Surgical History H/O colonoscopy Previous back surgery History of cholecystectomy History of endometrial ablation Family History Family History Father Hypertension Family history of sleep apnea COPD (chronic obstructive pulmonary disease) Colon polyp Obesity Diabetes mellitus Sibling Hypertension Family history of coronary artery disease COPD (chronic obstructive pulmonary disease) Collapsed lung Aneurysm Obesity Hyperlipemia Mother Family history of arthritis Obesity Hypotension Pulmonary embolism History of blood clotting factor deficiency Factor 5 Leiden mutation, heterozygous Hyperlipemia Breast cancer Depression Social History Social History Smoking status: Never smoker Second hand tobacco smoke exposure: No Alcohol intake: current Alcohol use details: couple times a month Substance use: never Substance use type: does not use Do You Feel Safe in your Home?: Yes Lack of Transportation: No Lack of Food: Never True Current Housing: I Have Housing Concerned About Future Housing: No Difficulty Paying Gas/Electric Bills: No Difficulty Paying for Meds: No Currently Unemployed: No Education: High School Diploma/GED Difficulty w/ Childcare or Family Care: No Living arrangements: with family Occupation/Education: occupation 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 Gender identity (if verbalized by the patient): Female Spiritual care concerns: No Meds Home Medications and Allergies Home Medications ?Medication ?Instructions ?Recorded ?Confirmed ?Type cholecalciferol (vitamin D3) 125 125 mcg PO DAILY 02/0205/18/25 History mcg (5,000 unit) capsule duloxetine 60 mg capsule,delayed 60 mg PO DAILY #90 ca ps 01/31/25 05/18/25 Rx release meloxicam 15 mg tablet 15 mg PO DAILY #30 tabs 02/2605/18/25 Rx spironolactone 25 mg tablet See Rx Instructions .Route 03/12/25 05/18/25 Rx .COMPLEX #90 tabs omeprazole 40 mg capsule,delayed 40 mg PO DAILY #90 ca ps 03/26/25 05/18/25 Rx release albuterol 90 mcg-budesonide 80 2 inh inhalation ONCE # 10.7 grams 04/09/25 05/15/25 Rx mcg/actuation HFA aerosol inhaler (Airsupra) montelukast 10 mg tablet See Rx Instructions .Route 1 05/18/25 Rx .COMPLEX #90 tabs hydrochlorothiazide 25 mg tablet See Rx Instructions . Route 04/16/25 05/18/25 Rx .COMPLEX #90 tabs diltiazem HCl 180 mg 180 mg PO DAILY #90 caps 09/2605/18/25 Rx capsule,extended release 24 hr (Cartia XT) ipratropium bromide 21 mcg (0.03 2 spray intranasal BI D PRN allergy 05/07/25 05/15/25 History %) nasal spray symptoms linaclotide 145 mcg capsule 145 mcg PO DAILY #90 caps 05/07/25 05/18/25 Rx (Linzess) olopatadine 0.1 % eye drops 1 drp EACH EYE BID PRN itc cynthia eyes 05/07/25 05/18/25 History rosuvastatin 10 mg tablet (Crestor) 10 mg PO DAILY #90 tabs 05/07/25 05/18/25 Rx Allergies Allergy/AdvReac Type Severity Reaction Status Date / Time atorvastatin Allergy Mild sore throat Verified 05/18/25 06:19 ezetimibe Allergy Mild arthralgia Verified 05/18/25 06:19 lisinopril Allergy Mild Cough Verified 05/18/25 06:19 azithromycin AdvReac Mild Gastrointestinal Verified 05/18/25 06:19 Upset Vital Signs Vital Signs - 24 hr 05/18/25 06:22 05/18/25 06:37 Temperature 96.9 F L Pulse Rate 91 Respiratory Rate 20 Blood Pressure 153/113 H 144/81 H Pulse Oximetry 96 Oxygen Delivery Room Air Exam Const: General: comfortable and no acute distress HENMT: Face/Nose/Sinus: Normal nares present Eyes: General: appearance normal, both eyes and all related structures Neck: Neck: no JVD Resp: Auscultation: clear to auscultation bilaterally Cardio: Rate: regular rate Rhythm: regular rhythm GI: Inspection: non-distended GI Palp: Yes Soft to palpation Skin: General skin exam: normal color Extrem: General: normal to inspection Psych: Mental Status: mental status grossly normal Assessment and Plan Assessment and plan (1) GERD (gastroesophageal reflux disease): Qualifiers: Esophagitis presence: with esophagitis Esophagitis bleeding: unspecified whether hemorrhage Qualified Code(s): K21.00 - Gastro-esophageal reflux disease with esophagitis, without bleeding Code(s): K21.9 - Gastro-esophageal reflux disease without esophagitis Status: Acute Assessment and Plan: egd with bx
[2025-05-18 07:40] VITALS: BP 117/74; PULSE 82; RESP 26; O2SAT 93
--- NOTE | 2025-05-18 07:40 | S_PTH ---
PATIENT: Julia Brand LOC: [facility] Aly#:[id number] AGE/SX: 54/F ROOM: RE05/18/[address]: Ravin Falcon MD : 1970 BED: DIS: 05/18/2025 SPEC #: [id number] RECD: 05/18/25 11:09 STATUS: TRISTAN KRISHNAN #: [id number] GENET: 05/18/25 07:[address]: Ravin Falcon DEPT: [facility] Surgical RECD BY: Sonia Cross ENTERED: 05/18/25 11:10 SP TYPE: Surgical OTHR DR: Javad Sher MD Tissues: A - Gastric Biopsy B - Esophageal Biopsy Procedures: Hematoxylin and Eosin Stain Gross and Microscopic Level 4
[2025-05-18 07:50] VITALS: BP 123/76; PULSE 78; RESP 20; O2SAT 97
[2025-05-18 08:00] VITALS: BP 141/72; PULSE 80; RESP 21; O2SAT 99
== END 2025-05-18 08:10 | disposition home or self-care (01) ==
PROVIDERS: PCP Family Medicine; Referring Provider Family Medicine; Visit Provider Internal Medicine Gastroenterology
PROC: 0DJ08ZZ Inspection of Upper Intestinal Tract, Via Natural or Artificial Opening Endoscopic (ICD-10-PCS; CPT 43239; principal; 2025-05-18 07:30)
DX: K21.00 Gastro-esophageal reflux disease with esophagitis, without bleeding (principal); K31.89 Other diseases of stomach and duodenum; E55.9 Vitamin D deficiency, unspecified; M62.838 Other muscle spasm; R05.3 Chronic cough; F98.8 Other specified behavioral and emotional disorders with onset usually occurring in childhood and adolescence; M51.369 Other intervertebral disc degeneration, lumbar region without mention of lumbar back pain or lower extremity pain; G89.29 Other chronic pain; M54.50 Low back pain, unspecified; Z79.51 Long term (current) use of inhaled steroids; Z98.1 Arthrodesis status; Z90.49 Acquired absence of other specified parts of digestive tract; Z98.891 History of uterine scar from previous surgery; Z83.719 Family history of colon polyps, unspecified; Z80.3 Family history of malignant neoplasm of breast; Z82.49 Family history of ischemic heart disease and other diseases of the circulatory system
CPT/HCPCS: 43239; 88305; J7120

== ENCOUNTER 2025-05-22 07:29 | Outpatient (CLI) | payer OTHER, SELFPAY ==
[2025-05-22 08:20] LABS: Add Urine Microscopic? YES; Appearance Urine Clear (Clear); Glucose Urine UA Negative (Negative); Leukocyte Esterase Ur 1+ LEU/UL (Negative); Nitrate Urine Negative (Negative); Non Pathogenic Casts 0-2; Specific Grav Ur 1.026 (1.001-1.035)
[2025-05-22 08:41] LABS: Anion Gap 10 mmol/L (4-12); Blood Urea Nitrogen 27 mg/dL (7-17); Calcium 10.2 mg/dL (8.4-10.2); Carbon Dioxide 27 mmol/L (22-30); Chloride 100 mmol/L (98-107); Estimated Glomerular Filt Rate > 60; Glucose 109 mg/dL (65-110); Potassium 3.7 mmol/L (3.4-5.0); Sodium 137 mmol/L (137-145)
--- NOTE | 2025-06-11 13:20 | WPDANESEPPF ---
Anes - Initial Pre Proc Eval Date/Time: 06/11/25 13:20 late entry Surgeon: Javad Sher MD Pre Op Diagnosis: Dysuria Hypokalemia Patient Data Age: 54 Gender: F Height: Weight: Allergies Allergy/AdvReac Type Severity Reaction Status Date / Time atorvastatin Allergy Mild sore throat Verified 05/18/25 06:19 ezetimibe Allergy Mild arthralgia Verified 05/18/25 06:19 lisinopril Allergy Mild Cough Verified 05/18/25 06:19 azithromycin AdvReac Mild Gastrointestinal Verified 05/18/25 06:19 Upset Home Medications ?Medication ?Instructions ?Recorded ?Confirmed ?Type cholecalciferol (vitamin D3) 125 125 mcg PO DAILY 02/17/24 05/18/25 History mcg (5,000 unit) capsule duloxetine 60 mg capsule,delayed 60 mg PO DAILY #90 caps 01/31/25 05/18/25 Rx release meloxicam 15 mg tablet 15 mg PO DAILY #30 tabs 03/12/25 05/18/25 Rx omeprazole 40 mg capsule,delayed 40 mg PO DAILY #90 caps 03/26/25 05/18/25 Rx release albuterol 90 mcg-budesonide 80 2 inh inhalation ONCE #10.7 grams 04/09/25 05/15/25 Rx mcg/actuation HFA aerosol inhaler (Airsupra) montelukast 10 mg tablet See Rx Instructions .Route 04/09/25 05/18/25 Rx .COMPLEX #90 tabs hydrochlorothiazide 25 mg tablet See Rx Instructions .Route 04/16/25 05/18/25 Rx .COMPLEX #90 tabs diltiazem HCl 180 mg 180 mg PO DAILY #90 caps 05/07/25 05/18/25 Rx capsule,extended release 24 hr (Cartia XT) ipratropium bromide 21 mcg (0.03 2 spray intranasal BID PRN allergy 05/07/25 05/15/25 History %) nasal spray symptoms linaclotide 145 mcg capsule 145 mcg PO DAILY #90 caps 05/07/25 05/18/25 Rx (Linzess) olopatadine 0.1 % eye drops 1 drp EACH EYE BID PRN itching eyes 05/07/25 05/18/25 History rosuvastatin 10 mg tablet (Crestor) 10 mg PO DAILY #90 tabs 05/07/25 05/18/25 Rx spironolactone 25 mg tablet See Rx Instructions .Route 06/06/25 Rx .COMPLEX #90 tabs Patient hx anesthesia problems: none Family hx anesthesia problems: none Results Review: All pre-operative results and documents have been reviewed as part of the pre-operative evaluation. [facility] Past Medical History Medical History Chronic cough Obesity (BMI 30-39.9) Post-menopausal Elevated liver enzymes Tinea corporis Stress due to illness of family member ADD (attention deficit disorder) Degenerative lumbar disc Right hip pain Low libido Low back pain Recurrent sinusitis Cough COVID-19 Exposure to COVID-19 virus Low vitamin D level Chronic low back pain Right leg pain Sinusitis Palpable mass of soft tissue of knee Allergies Muscle spasms of neck Abnormal mammogram Constipation Surgical History Surgical History H/O colonoscopy Previous back surgery History of cholecystectomy History of endometrial ablation Family History Family History Father Hypertension Family history of sleep apnea COPD (chronic obstructive pulmonary disease) Colon polyp Obesity Diabetes mellitus Sibling Hypertension Family history of coronary artery disease COPD (chronic obstructive pulmonary disease) Collapsed lung Aneurysm Obesity Hyperlipemia Mother Family history of arthritis Obesity Hypotension Pulmonary embolism History of blood clotting factor deficiency Factor 5 Leiden mutation, heterozygous Hyperlipemia Breast cancer Depression Social History Social History Smoking status: Never smoker Second hand tobacco smoke exposure: No Alcohol intake: current Alcohol use details: couple times a month Substance use: never Substance use type: does not use Lack of Transportation: No Lack of Food: Never True Current Housing: I Have Housing Concerned About Future Housing: No Difficulty Paying Gas/Electric Bills: No Difficulty Paying for Meds: No Currently Unemployed: No Education: High School Diploma/GED Difficulty w/ Childcare or Family Care: No Living arrangements: with family Occupation/Education: occupation 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 Informed Consent: The patient's anesthetic plan and its attendant risks and benefits were discussed with the patient/family/POAon day of procedure. Questions were solicited and answers provided to the satisfaction of the patient/family/POA.
== END 2025-05-22 07:30 | disposition home or self-care (01) ==
LOC: ANHLAB 07:30
PROVIDERS: PCP Family Medicine; Visit Provider Family Medicine
DX: R30.0 Dysuria (principal); E87.6 Hypokalemia
CPT/HCPCS: 36415; 80048; 81001

== ENCOUNTER 2025-06-14 09:00 | Outpatient (CLI) | payer OTHER, SELFPAY ==
[2025-06-14 09:29] LABS: Hematocrit 40.6 % (37.0-47.0); Hemoglobin 12.9 g/dL (12.0-15.0); Immature Granulocyte Percent A 0.3 % (0-0.5); Lymphocytes Absolute Auto 2.26 K/mm3 (0.9-3.2); Mean Corpuscular HGB Conc 31.8 g/dl (32-36); Mean Corpuscular Hemoglobin 26.0 pg (26-34); Mean Corpuscular Volume 81.9 fl (80-100); Nucleated Red Blood Cells Absolute Auto 0.000 K/mm3 (0.0-0.012); Nucleated Red Blood Cells Perc 0.0 % (0.0-0.2); Platelet Count Result 310 k/mm3 (150-375); Red Blood Count 4.96 M/mm3 (4.2-5.4); White Blood Count 7.5 K/mm3 (4.5-10.0)
[2025-06-14 09:31] LABS: Add Urine Microscopic? NO; Appearance Urine Clear (Clear); Glucose Urine UA Negative (Negative); Leukocyte Esterase Ur Negative LEU/UL (Negative); Nitrate Urine Negative (Negative); Specific Grav Ur 1.017 (1.001-1.035)
[2025-06-14 09:52] LABS: Alanine Aminotransferase 40 U/L (6-35); Albumin Level 4.6 g/dL (3.5-5.1); Alkaline Phosphatase 94 U/L (38-126); Anion Gap 8 mmol/L (4-12); Aspartate Amino Transferase 38 U/L (14-36); Bilirubin,Total 0.5 mg/dL (0.2-1.3); Blood Urea Nitrogen 19 mg/dL (7-17); Calcium 10.1 mg/dL (8.4-10.2); Carbon Dioxide 26 mmol/L (22-30); Chloride 102 mmol/L (98-107); Estimated Glomerular Filt Rate > 60; Glucose 77 mg/dL (65-110); Potassium 4.0 mmol/L (3.4-5.0); Sodium 136 mmol/L (137-145); Total Protein 8.2 g/dL (6.3-8.2)
== END 2025-06-14 09:01 | disposition home or self-care (01) ==
PROVIDERS: PCP Family Medicine; Visit Provider Family Medicine
DX: R74.8 Abnormal levels of other serum enzymes (principal); N39.0 Urinary tract infection, site not specified
CPT/HCPCS: 36415; 80048; 80076; 81003; 85025; 87086

== ENCOUNTER 2025-07-04 08:37 | Outpatient (CLI) | payer OTHER, SELFPAY ==
--- OUTSIDE RECORDS SUMMARY | 2025-07-04 08:43 | XMS_ITS | Clinical Summary ---
Author Organization [facility] [address] Address [address] [place] [address] Care Team Providers Care Community Program Assistant Name Role Phone Javad Sher MD Primary Care Provider [phone] Allergies Active Allergy Reactions Criticality Noted Date [...] Encounters Date Type Department Care Team Description 05/15/2025 Telephone [facility] [address] [place] [phone] Theodore Mathew MD 04/30/2025 8:15 AM CDT Ancillary Procedure [facility] [address] [place] [phone] Class 3 severe obesity without serious comorbidity with body mass index (BMI) of 45.0 to 49.9 in adult, unspecified obesity type 04/30/2025 Results Follow-Up [facility] [address] [place] [address] [place] [phone] Dianne Carlson RN Transthoracic Echo (TTE) Complete W Doppler/CF 04/17/2025 11:00 AM CDT Office Visit [facility] [address] [place] [address] [place] [phone] Theodore Mathew MD Lipid screening (Primary Dx); Class 3 severe obesity without serious comorbidity with body mass index (BMI) of 45.0 to 49.9 in adult, unspecified obesity type 04/17/2025 Orders Only [facility] [address] [place] [address] [place] [phone] Provider, MD Kenisha from Last 3 Months Social History Tobacco Use Types Packs/Day Years Used Date Smoking Tobacco: Never Tobacco Cessation:Counseling Given: Not Answered Comments Unknown Sex and Gender Information Value Date Recorded Sex Assigned at Not on file 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 Gender Identity Not on file Sexual Orientation [...] Screening 1990 Regular Well Visit/Exam 18-64 1990 Pneumococcal vaccine <65 (1 of 2 - PCV) 09/21/1991 Zoster Vaccine (1 of 2) 2022 Covid-19 Vaccine (4 - season) 2025 11/07/2021, 04/04/2021, 03/07/2021 Influenza Vaccine (#1) 2025 6, 03/21/2015, 03/14/2014 Procedures Procedure Name Priority Date/Time Associated Diagnosis Comments TRANSTHORACIC ECHO (TTE) COMPLETE W DOPPLER/CF W CONTRAST Routine 04/30/2025 9:09 AM CDT Class 3 severe obesity without serious comorbidity with body mass index (BMI) of 45.0 to 49.9 in adult, unspecified obesity type POCT LIPID PANEL Routine 04/17/2025 11:1 3 AM CDT Lipid screening from Last 3 Months Results * TRANSTHORACIC ECHO (TTE) COMPLETE W DOPPLER/CF W CONTRAST (04/30/2025 9:09 AM CDT) EF Mod BP 57 % CONS SCIMAGE Anatomical Region Laterality Modality Ultrasound 04/30/2025 8:15 AM CDT Narrative 04/30/2025 10:15 AM CDT [facility] [address] [facility] [address], [place] [address] [address] [facility] [address], [place] [address] P:[phone] P:[phone] Echocardiographic Report Patient Name: EMMA BRAND M : 1970 Study Date: 04/30/2025 8:15:04 AM Sex: F 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 With Strain Analysis. INDICATIONS: E66.813 Obesity, class 3 and Z68.42 Body mass index (BMI) 45.0-49.9, adult. MEASUREMENTS: 2D/MM Value Range Doppler Value Range EF Mod BP 57 % [ 54 - 74 ] CINDY Vmax 2.15 cm2 [ 2.00 - 4.00 ] LV GLS -17.29 % AV Mean PG 4 mmHg LVIDd 2D 5.03 cm [ 3.80 - 5.20 ] AV Peak Lev 1.42 m/s [ 1.00 - 1.70 ] LVIDs 2D 3.58 cm [ 2.20 - 3.50 ] AV Peak PG 8 mmHg LVPWd 2D 1.01 cm [ 0.60 - 0.90 ] AV VTI 28.98 cm IVSd 2D 1.08 cm [ 0.60 - 0.90 ] LVOT Diam 1.98 cm [ 1.70 - 2.10 ] AoR Diam 2D 3.10 cm [ 2.70 - 3.30 ] LVOT Peak Lev 0.99 m/s [ 0.70 - 1.10 ] LA Volume 38.92 ml [ 22.00 - 52.00 ] LVOT VTI 21.35 cm LA Volume Index 17 cc/m2 [ 16 - 28 ] MV E Peak Lev 0.97 m/s [ 0.60 - 1.30 ] RA Volume 22.81 ml MV A Peak Lev 0.72 m/s [ 1.00 - 1.20 ] MV Decel Time 139 msec [ 104 - 258 ] PV Peak Lev 1.03 m/s [ 0.40 - 0.80 ] TR Peak Lev 2.73 m/s [ 1.00 - 2.80 ] TR Peak PG 30 mmHg RVSP 35.00 mmHg [ 10.00 - 36.00 ] RV S` 12.51 mmHg Lateral E` 0.11 m/s [ 0.10 - 0.15 ] Septal E` 0.10 m/s [ 0.08 - 0.15 ] E` 0.10 m/s E/E` 10 Tapse 2.05 cm [ 1.71 - 5.00 ] 2D/MM Value Range Doppler Value Range - FINDINGS: Interpretation Site: Exam was interpreted at [facility]. Left Ventricle: Normal left ventricular systolic function. No focal wall motion abnormalities. Normal left ventricular size. Definity contrast agent used to visually enhance endocardial wall motion and contractility. Lot Number: [id number]. Normal left ventricular wall thickness. Normal left ventricular diastolic function. Ejection fraction is measured at 57 %. Global Longitudinal Strain is -17 %. GLS is abnormal. Right Ventricle: Normal right ventricular size. Normal right ventricular systolic function. Left Atrium: The left atrium is normal in size. Right Atrium: The right atrium is normal in size. Atrial Septum: Normal atrial septum. Mitral Valve: Normal appearance of the mitral valve. Mild to moderate mitral valve regurgitation. There is no hemodynamically significant mitral stenosis by Doppler. Aortic Valve: Normal appearance of the aortic valve. No evidence of hemodynamically significant aortic stenosis by Doppler. Trileaflet aortic valve. No aortic regurgitation. Tricuspid Valve: Normal appearance of the tricuspid valve. Estimated peak RVSP is 35 mmHg. Mild tricuspid regurgitation. Pulmonic Valve: Normal appearance of the pulmonic valve. Mild pulmonic regurgitation. Pericardium: Small pericardial effusion. No echocardiographic evidence to suggest pericardial tamponade. Aorta: Sinus of Valsalva is normal. IVC: Normal size and normal respiratory collapse consistent with normal right atrial pressure (<5 mmHg). Pulmonary Artery: Normal pulmonary artery size. CONCLUSIONS: Normal left ventricular systolic function. No focal wall motion abnormalities. Normal left ventricular size. Definity contrast agent used to visually enhance endocardial wall motion and contractility. Lot Number: [id number]. Normal left ventricular wall thickness. Normal left ventricular diastolic function. Ejection fraction is measured at 57 %. Global Longitudinal Strain is -17 %. GLS is abnormal. Mild to moderate mitral valve regurgitation. Estimated peak RVSP is 35 mmHg. Mild tricuspid regurgitation. Mild pulmonic regurgitation. Small pericardial effusion. No echocardiographic evidence to suggest pericardial tamponade. Electronically Signed By: Dr. Samia Ludwig [facility] 04/30/2025 10:14:23 AM CDT Procedure Note Samia Ludwig MD - 04/30/2025 [facility] [address] [facility] [address], [place] [address] [address] [facility] [address] [id number], [place] [address] P:[phone] P:[phone] Echocardiographic Report Patient Name: EMMA BRAND M : 1970 Study Date: 04/30/2025 8:15:04 AM Sex: F Peanut Sheller: Taisha Aragon (Damian)(CT), [facility] Location: [place] Ref Provider: THEODORE MATHEW Height(Cm): 157 BSA: 2.28 Weight(Kg): 119.3 Heart Rate: 79 BP: 152 / 100 Quality: Good Order Provider: THEODORE MATHEW PROCEDURES: Echocardiographic Report: Transthoracic echocardiogram with complete 2D, M-Mode, color Dopplerexamination and Definity contrast. With Strain Analysis. INDICATIONS: E66.813 Obesity, class 3 and Z68.42 Body mass index (BMI) 45.0-49.9,adult. MEASUREMENTS: 2D/MM Value Range Doppler ValueRange EF Mod BP 57 % [ 54 - 74 ] CINDY Vmax 2.15cm2 [ 2.00 - 4.00 ] LV GLS -17.29 % AV Mean PG 4mmHg LVIDd 2D 5.03 cm [ 3.80 - 5.20 ] AV Peak Lev 1.42m/s [ 1.00 - 1.70 ] LVIDs 2D 3.58 cm [ 2.20 - 3.50 ] AV Peak PG 8mmHg LVPWd 2D 1.01 cm [ 0.60 - 0.90 ] AV VTI 28.98cm IVSd 2D 1.08 cm [ 0.60 - 0.90 ] LVOT Diam 1.98cm [ 1.70 - 2.10 ] AoR Diam 2D 3.10 cm [ 2.70 - 3.30 ] LVOT Peak Lev 0.99m/s [ 0.70 - 1.10 ] LA Volume 38.92 ml [ 22.00 - 52.00 ] LVOT VTI 21.35cm LA Volume Index 17 cc/m2 [ 16 - 28 ] MV E Peak Lev 0.97m/s [ 0.60 - 1.30 ] RA Volume 22.81 ml MV A Peak Lev 0.72m/s [ 1.00 - 1.20 ] MV Decel Time 139 msec [ 104 - 258 ] PV Peak Lev 1.03 m/s [ 0.40 - 0.80 ] TR Peak Lev 2.73 m/s [ 1.00 - 2.80 ] TR Peak PG 30 mmHg RVSP 35.00 mmHg [ 10.00 - 36.00 ] RV S` 12.51 mmHg Lateral E` 0.11 m/s [ 0.10 - 0.15 ] Septal E` 0.10 m/s [ 0.08 - 0.15 ] E` 0.10 m/s E/E` 10 Tapse 2.05 cm [ 1.71 - 5.00 ] 2D/MM Value Range Doppler ValueRange - FINDINGS: Interpretation Site: Exam was interpreted at [facility]. Left Ventricle: Normal left ventricular systolic function. No focal wall motionabnormalities. Normal left ventricular size. Definity contrast agent used to visually enhanceendocardial wall motion and contractility. Lot Number: [id number]. Normal left ventricular wallthickness. Normal left ventricular diastolic function. Ejection fraction is measuredat 57 %. Global Longitudinal Strain is -17 %. GLS is abnormal. Right Ventricle: Normal right ventricular size. Normal right ventricular systolicfunction. Left Atrium: The left atrium is normal in size. Right Atrium: The right atrium is normal in size. Atrial Septum: Normal atrial septum. Mitral Valve: Normal appearance of the mitral valve. Mild to moderate mitral valveregurgitation. There is no hemodynamically significant mitral stenosis by Doppler. Aortic Valve: Normal appearance of the aortic valve. No evidence of hemodynamicallysignificant aortic stenosis by Doppler. Trileaflet aortic valve. No aortic regurgitation. Tricuspid Valve: Normal appearance of the tricuspid valve. Estimated peak RVSP is 35 mmHg.Mild tricuspid regurgitation. Pulmonic Valve: Normal appearance of the pulmonic valve. Mild pulmonic regurgitation. Pericardium: Small pericardial effusion. No echocardiographic evidence to suggestpericardial tamponade. Aorta: Sinus of Valsalva is normal. IVC: Normal size and normal respiratory collapse consistent with normal rightatrial pressure (<5 mmHg). Pulmonary Artery: Normal pulmonary artery size. CONCLUSIONS: Normal left ventricular systolic function. No focal wall motionabnormalities. Normal left ventricular size. Definity contrast agent used to visually enhanceendocardial wall motion and contractility. Lot Number: [id number]. Normal left ventricular wallthickness. Normal left ventricular diastolic function. Ejection fraction is measuredat 57 %. Global Longitudinal Strain is -17 %. GLS is abnormal. Mild to moderate mitral valve regurgitation. Estimated peak RVSP is 35 mmHg. Mild tricuspid regurgitation. Mild pulmonic regurgitation. Small pericardial effusion. No echocardiographic evidence to suggestpericardial tamponade. Electronically Signed By: Dr. Samia Ludwig [facility] 04/30/2025 10:14:23 AM CDT Theodore Mathew MD CV ECHO PROCEDURES Final Result * (ABNORMAL) POCT lipid panel (04/17/2025 11:13 [...] OF CARE TEST ORDERABLES Fi nal Result from Last 3 Months Insurance [facility] Care Teams Community Program Assistant Relationship Specialty Start Date End Date Javad Sher MD [address] [place] [address] PCP - General Family Medicine 04/17/25
[2025-07-04 09:38] LABS: Add Urine Microscopic? NO; Appearance Urine Clear (Clear); Glucose Urine UA Negative (Negative); Leukocyte Esterase Ur Negative LEU/UL (Negative); Nitrate Urine Negative (Negative); Specific Grav Ur 1.026 (1.001-1.035)
== END 2025-07-04 08:38 | disposition home or self-care (01) ==
PROVIDERS: PCP Family Medicine; Visit Provider Physician Assistant Medical
DX: R30.0 Dysuria (principal)
CPT/HCPCS: 81003